=== PATIENT | male | born 1950 | race Caucasian/White ===

== ENCOUNTER → 2016-08-16 | Outpatient (CLI) | payer MEDICARE, MEDICAID ==
[~2016-08-16] MED LIST: ALDACTONE; FUROSEMIDE; INVANZ INJ1 G/VIAL IJ; LOPERAMIDE2 MG PO; NO HOME MEDICATIONS; ZOCOR 40MG40 MG PO
[2016-08-16 17:44] LABS: CALCIUM 9.5 mg/dL (8.4-10.2); CREATININE, serum 2.01 mg/dL (0.66-1.25); MAGNESIUM 1.7 mg/dL (1.6-2.3); PHOSPHOROUS 4.1 mg/dL (2.5-4.5); POTASSIUM 4.1 mmol/L (3.4-5.0)
== END ==
LOC: COL.RAD 16:57
PROVIDERS: Internal Medicine
DX: N17.8 Other acute kidney failure (principal); N18.2 Chronic kidney disease, stage 2 (mild); E11.9 Type 2 diabetes mellitus without complications

== ENCOUNTER → 2016-08-23 | Outpatient (REF) ==
[2016-08-23 06:43] LABS: BASO # 0.1 (0.0-0.2); BASO % 0.7 % (0.0-2.0); EOS # 0.4 (0.0-0.7); EOS % 5.1 % (0-4.0); GRAN # 5.3 (1.4-6.5); LYMPH # 1.7 (1.2-3.4); MEAN CELL VOLUME 89 fl (80.0-100.0); MEAN CORPUSCULAR HGB CONC 32 g/dl (33.0-37.0); MEAN PLATELET VOLUME 11.1 fl (7.4-10.4); MONO # 1.1 (0.1-0.6); MONO % 12.7 % (1.7-9.3); PLATELET COUNT 231 K/mm3 (130-400); RED BLOOD COUNT 3.33 M/mm3 (4.20-5.60); WHITE BLOOD COUNT 8.7 K/mm3 (4.8-10.8)
[2016-08-23 06:44] LABS: HEMATOCRIT 29.5 % (42.0-52.0); HEMOGLOBIN 9.5 g/dl (13.5-18.0); MEAN CORPUSCULAR HEMOGLOBIN 29 pg (27.0-31.0)
[2016-08-23 07:39] LABS: ADJUSTED CALCIUM 9.6 mg/dL (8.4-10.2); ALBUMIN 3.5 gm/dL (3.5-5.0); BILIRUBIN,TOTAL 1.2 mg/dL (0.0-1.0); CALCIUM 9.2 mg/dL (8.4-10.2); CREATININE, serum 1.83 mg/dL (0.66-1.25); POTASSIUM 3.1 mmol/L (3.4-5.0)
[2016-08-23 08:10] LABS: THYROID STIMULATING HORMONE 0.927 uIU/mL (0.465-4.680)
== END ==
LOC: ZCOL.LAB 06:37
PROVIDERS: Internal Medicine
DX: Z01.89 Encounter for other specified special examinations (principal)

== ENCOUNTER → 2016-09-26 | Outpatient (CLI) | payer MEDICARE, MEDICAID ==
[2016-09-26 19:14] LABS: PH 6 (5-8); SQUAMOUS EPITHELIAL 0-2 /hpf; URINE APPEARANCE Clear; URINE BACTERIA Rare /hpf; URINE BILIRUBIN Negative (NEGATIVE); URINE BLOOD Negative (NEGATIVE); URINE COLOR Yellow; URINE GLUCOSE Negative (NEGATIVE); URINE KETONE Negative (NEGATIVE); URINE RBC 0-2 /hpf; URINE UROBILINOGEN Negative (NEGATIVE); URINE WBC 0-2 /hpf
== END ==
LOC: ZCOL.LAB 17:32
PROVIDERS: Internal Medicine
DX: N39.8 Other specified disorders of urinary system (principal)

== ENCOUNTER → 2016-09-30 | Outpatient (CLI) | payer MEDICARE, MEDICAID ==
[2016-09-30 10:57] LABS: CALCIUM 9.9 mg/dL (8.4-10.2); CREATININE, serum 2.13 mg/dL (0.66-1.25)
[2016-09-30 11:03] LABS: POTASSIUM 2.8 mmol/L (3.4-5.0)
== END ==
LOC: ZCOL.LAB 10:12 → COL.LAB 10:12
PROVIDERS: Internal Medicine
DX: M62.81 Muscle weakness (generalized) (principal)

== ENCOUNTER → 2016-10-02 | Outpatient (CLI) | payer MEDICARE, MEDICAID ==
[2016-10-02 14:04] LABS: CALCIUM 9.2 mg/dL (8.4-10.2); CREATININE, serum 1.71 mg/dL (0.66-1.25)
== END ==
LOC: ZCOL.LAB 13:42
PROVIDERS: Internal Medicine
DX: E87.6 Hypokalemia (principal)

== ENCOUNTER → 2016-11-01 | Outpatient (REF) ==
[2016-11-01 17:34] LABS: CALCIUM 9.7 mg/dL (8.4-10.2); CREATININE, serum 1.51 mg/dL (0.66-1.25); POTASSIUM 3.1 mmol/L (3.4-5.0)
== END ==
LOC: ZCOL.LAB 16:32
PROVIDERS: Internal Medicine
DX: Z01.89 Encounter for other specified special examinations (principal)

== ENCOUNTER → 2016-11-03 | Outpatient (CLI) | payer MEDICARE, MEDICAID | LOC: ZCOL.LAB 00:56 | PROVIDERS: Internal Medicine | DX: F20.89 Other schizophrenia (principal); E11.9 Type 2 diabetes mellitus without complications ==

== ENCOUNTER → 2016-11-22 | Outpatient (CLI) | payer MEDICARE, MEDICAID ==
[2016-11-22 15:30] LABS: CALCIUM 9.3 mg/dL (8.4-10.2); CREATININE, serum 1.43 mg/dL (0.66-1.25); POTASSIUM 4.1 mmol/L (3.4-5.0)
== END ==
LOC: ZCOL.LAB 14:43
PROVIDERS: Internal Medicine
DX: E11.9 Type 2 diabetes mellitus without complications (principal); Z02.89 Encounter for other administrative examinations

== ENCOUNTER → 2016-12-01 | Outpatient (CLI) | payer MEDICARE, MEDICAID ==
[2016-12-01 08:43] LABS: CALCIUM 9.3 mg/dL (8.4-10.2); CREATININE, serum 1.25 mg/dL (0.66-1.25); MAGNESIUM 1.8 mg/dL (1.6-2.3); POTASSIUM 3.4 mmol/L (3.4-5.0)
== END ==
LOC: ZCOL.LAB 06:05
PROVIDERS: Internal Medicine
DX: Z02.89 Encounter for other administrative examinations (principal)

== ENCOUNTER → 2016-12-18 | Outpatient (CLI) | payer MEDICARE, MEDICAID ==
[2016-12-18 18:20] LABS: ADJUSTED CALCIUM 9.9 mg/dL (8.4-10.2); ALBUMIN 3.8 gm/dL (3.5-5.0); CALCIUM 9.7 mg/dL (8.4-10.2); CREATININE, serum 1.23 mg/dL (0.66-1.25); POTASSIUM 3.3 mmol/L (3.4-5.0); TOTAL PROTEIN 7.4 gm/dL (6.4-8.2)
[2016-12-18 18:40] LABS: PHOSPHOROUS 3.7 mg/dL (2.5-4.5)
[2016-12-18 18:47] LABS: BASO # 0.1 (0.0-0.2); EOS # 0.2 (0.0-0.7); EOS % 3.5 % (0-4.0); GRAN # 3.9 (1.4-6.5); GRAN % 56.1 % (42.2-75.2); HEMOGLOBIN 12.3 g/dl (13.5-18.0); LYMPH % 29.4 % (20.0-51.0); MEAN CELL VOLUME 87 fl (80.0-100.0); MEAN CORPUSCULAR HEMOGLOBIN 28 pg (27.0-31.0); MEAN CORPUSCULAR HGB CONC 32 g/dl (33.0-37.0); MEAN PLATELET VOLUME 11.7 fl (7.4-10.4); MONO # 0.7 (0.1-0.6); MONO % 9.6 % (1.7-9.3); PLATELET COUNT 268 K/mm3 (130-400); RED BLOOD COUNT 4.47 M/mm3 (4.20-5.60); REDCELL DISTRIBUTION WIDTH-CV 16.9 % (11.5-14.5); WHITE BLOOD COUNT 6.9 K/mm3 (4.8-10.8)
== END ==
LOC: ZCOL.LAB 16:05
PROVIDERS: Internal Medicine
DX: Z86.718 Personal history of other venous thrombosis and embolism (principal); Z02.89 Encounter for other administrative examinations

== ENCOUNTER → 2016-12-20 | Outpatient (CLI) | payer MEDICARE, MEDICAID ==
[2016-12-20 22:38] LABS: PH 5 (5-8); SQUAMOUS EPITHELIAL 0-2 /hpf; URINE APPEARANCE Clear; URINE BACTERIA Rare /hpf; URINE BILIRUBIN Negative (NEGATIVE); URINE BLOOD Negative (NEGATIVE); URINE COLOR Yellow; URINE GLUCOSE Negative (NEGATIVE); URINE KETONE Negative (NEGATIVE); URINE RBC 0-2 /hpf; URINE UROBILINOGEN Negative (NEGATIVE)
[2016-12-21 15:36] LABS: CREATININE OTHER SOURCE 147 mg/dL (())
== END ==
LOC: ZCOL.LAB 21:42
PROVIDERS: Internal Medicine
DX: Z02.89 Encounter for other administrative examinations (principal)

== ENCOUNTER → 2017-01-20 | Outpatient (CLI) | payer MEDICARE, MEDICAID ==
[2017-01-20 20:27] LABS: ALBUMIN 3.6 gm/dL (3.5-5.0); BILIRUBIN,DIRECT 0.7 mg/dL (0.0-0.4); BILIRUBIN,TOTAL 0.9 mg/dL (0.0-1.0); TOTAL PROTEIN 6.9 gm/dL (6.4-8.2)
== END ==
LOC: ZCOL.LAB 19:07
PROVIDERS: Internal Medicine
DX: Z13.0 Encounter for screening for diseases of the blood and blood-forming organs and certain disorders involving the immune mechanism (principal)

== ENCOUNTER → 2017-02-19 | Outpatient (CLI) | payer MEDICARE, MEDICAID ==
[2017-02-19 08:59] LABS: BASO # 0.1 (0.0-0.2); BASO % 0.8 % (0.0-2.0); EOS # 0.3 (0.0-0.7); EOS % 4.3 % (0-4.0); GRAN # 3.2 (1.4-6.5); HEMATOCRIT 35.3 % (42.0-52.0); HEMOGLOBIN 11.2 g/dl (13.5-18.0); MEAN CELL VOLUME 88 fl (80.0-100.0); MEAN CORPUSCULAR HEMOGLOBIN 28 pg (27.0-31.0); MEAN CORPUSCULAR HGB CONC 32 g/dl (33.0-37.0); MEAN PLATELET VOLUME 11.5 fl (7.4-10.4); MONO # 0.8 (0.1-0.6); MONO % 12.6 % (1.7-9.3); PLATELET COUNT 261 K/mm3 (130-400); RED BLOOD COUNT 4.03 M/mm3 (4.20-5.60); REDCELL DISTRIBUTION WIDTH-CV 14.8 % (11.5-14.5); WHITE BLOOD COUNT 6.3 K/mm3 (4.8-10.8)
[2017-02-19 09:06] LABS: ADJUSTED CALCIUM 9.6 mg/dL (8.4-10.2); ALBUMIN 3.5 gm/dL (3.5-5.0); CALCIUM 9.2 mg/dL (8.4-10.2); CREATININE, serum 1.41 mg/dL (0.66-1.25); POTASSIUM 3.3 mmol/L (3.4-5.0); TOTAL PROTEIN 6.9 gm/dL (6.4-8.2)
[2017-02-19 09:16] LABS: BILIRUBIN,DIRECT 0.6 mg/dL (0.0-0.4); BILIRUBIN,TOTAL 0.6 mg/dL (0.0-1.0)
[2017-02-19 09:37] LABS: PSA-TOTAL 0.1 ng/mL (0-4); THYROID STIMULATING HORMONE 1.35 uIU/mL (0.465-4.680)
== END ==
LOC: ZCOL.LAB 06:43
PROVIDERS: Internal Medicine
DX: N40.0 Benign prostatic hyperplasia without lower urinary tract symptoms (principal); F20.89 Other schizophrenia; E11.9 Type 2 diabetes mellitus without complications
CPT/HCPCS: G0103

== ENCOUNTER → 2017-02-21 | Outpatient (CLI) | payer MEDICARE, MEDICAID ==
[2017-02-21 07:29] LABS: ADJUSTED CALCIUM 9.6 mg/dL (8.4-10.2); ALBUMIN 3.5 gm/dL (3.5-5.0); BILIRUBIN,TOTAL 0.7 mg/dL (0.0-1.0); CALCIUM 9.2 mg/dL (8.4-10.2); CREATININE, serum 1.25 mg/dL (0.66-1.25); POTASSIUM 3.7 mmol/L (3.4-5.0); TOTAL PROTEIN 6.9 gm/dL (6.4-8.2)
[2017-02-21 07:59] LABS: THYROID STIMULATING HORMONE 1.07 uIU/mL (0.465-4.680)
== END ==
LOC: ZCOL.LAB 06:19
PROVIDERS: Internal Medicine
DX: E11.9 Type 2 diabetes mellitus without complications (principal); E78.5 Hyperlipidemia, unspecified

== ENCOUNTER → 2017-05-14 | Outpatient (CLI) | payer MEDICARE, MEDICAID ==
[2017-05-14 11:59] LABS: ALBUMIN 3.7 gm/dL (3.5-5.0); CALCIUM 9.3 mg/dL (8.4-10.2); CREATININE, serum 1.4 mg/dL (0.66-1.25); PHOSPHOROUS 4.1 mg/dL (2.5-4.5)
[2017-05-14 12:11] LABS: BASO # 0.1 (0.0-0.2); BASO % 0.9 % (0.0-2.0); EOS # 0.2 (0.0-0.7); EOS % 3.2 % (0-4.0); GRAN % 57.1 % (42.2-75.2); HEMOGLOBIN 12.1 g/dl (13.5-18.0); LYMPH # 1.9 (1.2-3.4); LYMPH % 26.9 % (20.0-51.0); MEAN CELL VOLUME 89 fl (80.0-100.0); MEAN CORPUSCULAR HEMOGLOBIN 29 pg (27.0-31.0); MEAN CORPUSCULAR HGB CONC 33 g/dl (33.0-37.0); MEAN PLATELET VOLUME 11.6 fl (7.4-10.4); MONO # 0.8 (0.1-0.6); MONO % 11.5 % (1.7-9.3); PLATELET COUNT 229 K/mm3 (130-400); RED BLOOD COUNT 4.17 M/mm3 (4.20-5.60); REDCELL DISTRIBUTION WIDTH-CV 14.6 % (11.5-14.5); WHITE BLOOD COUNT 6.9 K/mm3 (4.8-10.8)
[2017-05-14 12:19] LABS: HEMATOCRIT 36.9 % (42.0-52.0)
[2017-05-14 15:10] LABS: PH 5 (5-8); SQUAMOUS EPITHELIAL 0-2 /hpf; URINE APPEARANCE Clear; URINE BACTERIA None Seen /hpf; URINE BILIRUBIN Negative (NEGATIVE); URINE BLOOD Negative (NEGATIVE); URINE COLOR Yellow; URINE GLUCOSE Negative (NEGATIVE); URINE KETONE Negative (NEGATIVE); URINE RBC 0-2 /hpf; URINE UROBILINOGEN Negative (NEGATIVE); URINE WBC 0-2 /hpf
== END ==
LOC: ZCOL.LAB 11:17
PROVIDERS: Internal Medicine
DX: E78.5 Hyperlipidemia, unspecified (principal)

== ENCOUNTER → 2017-05-23 | Outpatient (REF) ==
[2017-05-23 12:20] LABS: CREATININE, serum 1.3 mg/dL (0.66-1.25); POTASSIUM 4.5 mmol/L (3.4-5.0)
== END ==
LOC: ZCOL.LAB 11:53
PROVIDERS: Internal Medicine
DX: E11.9 Type 2 diabetes mellitus without complications (principal); E78.5 Hyperlipidemia, unspecified

== ENCOUNTER → 2017-06-12 | Outpatient (CLI) | payer MEDICARE, MEDICAID ==
[2017-06-12 11:41] LABS: CALCIUM 9.2 mg/dL (8.4-10.2); CREATININE, serum 1.42 mg/dL (0.66-1.25); POTASSIUM 4.6 mmol/L (3.4-5.0)
== END ==
LOC: ZCOL.LAB 11:01
PROVIDERS: Internal Medicine
DX: E11.9 Type 2 diabetes mellitus without complications (principal); K76.89 Other specified diseases of liver

== ENCOUNTER → 2017-08-09 | Outpatient (CLI) | payer MEDICARE, MEDICAID ==
[2017-08-09 19:40] LABS: COLLECTION METHOD CLEAN CATCH
[2017-08-09 19:48] LABS: PH 5 (5-8); SQUAMOUS EPITHELIAL None Seen /hpf; URINE APPEARANCE Clear; URINE BACTERIA None Seen /hpf; URINE BILIRUBIN Negative (NEGATIVE); URINE BLOOD Negative (NEGATIVE); URINE COLOR Yellow; URINE GLUCOSE Negative (NEGATIVE); URINE KETONE Negative (NEGATIVE); URINE LEUKOCYTE ESTERASE Negative (NEGATIVE); URINE PROTEIN(semi-quant) Negative (NEGATIVE); URINE RBC 0-2 /hpf; URINE WBC 0-2 /hpf
[2017-08-10 14:24] LABS: CREATININE OTHER SOURCE 143 mg/dL (()); URINE MICROALBUMIN <0.5 mg/dL (0.0-1.7)
== END ==
LOC: ZCOL.LAB 19:07
PROVIDERS: Internal Medicine
DX: N18.3 Chronic kidney disease, stage 3 (moderate) (principal)

== ENCOUNTER → 2017-08-09 | Outpatient (CLI) | payer MEDICARE, MEDICAID | LOC: ZCOL.LAB 14:10 | DX: Z01.89 Encounter for other specified special examinations (principal) ==

== ENCOUNTER → 2017-08-15 | Outpatient (CLI) | payer MEDICARE, MEDICAID ==
[2017-08-15 11:56] LABS: BASO # 0.1 (0.0-0.2); BASO % 0.8 % (0.0-2.0); EOS # 0.2 (0.0-0.7); EOS % 2.6 % (0-4.0); GRAN # 3.7 (1.4-6.5); GRAN % 56.8 % (42.2-75.2); HEMATOCRIT 39.3 % (42.0-52.0); HEMOGLOBIN 12.8 g/dl (13.5-18.0); LYMPH # 1.7 (1.2-3.4); LYMPH % 27.1 % (20.0-51.0); MEAN CELL VOLUME 90 fl (80.0-100.0); MEAN CORPUSCULAR HEMOGLOBIN 29 pg (27.0-31.0); MEAN CORPUSCULAR HGB CONC 33 g/dl (33.0-37.0); MEAN PLATELET VOLUME 11.2 fl (7.4-10.4); MONO # 0.8 (0.1-0.6); MONO % 12.4 % (1.7-9.3); PLATELET COUNT 219 K/mm3 (130-400); RED BLOOD COUNT 4.36 M/mm3 (4.20-5.60)
[2017-08-15 12:14] LABS: CALCIUM 9.4 mg/dL (8.4-10.2); CREATININE, serum 1.67 mg/dL (0.66-1.25); POTASSIUM 3.7 mmol/L (3.4-5.0)
== END ==
LOC: ZCOL.LAB 11:51
PROVIDERS: Internal Medicine
DX: N18.3 Chronic kidney disease, stage 3 (moderate) (principal); E87.6 Hypokalemia

== ENCOUNTER → 2017-08-22 | Outpatient (CLI) | payer MEDICARE, MEDICAID ==
[2017-08-22 11:24] LABS: ALBUMIN 3.8 gm/dL (3.5-5.0); BILIRUBIN,TOTAL 0.8 mg/dL (0.0-1.0); CALCIUM 9.5 mg/dL (8.4-10.2); CREATININE, serum 1.46 mg/dL (0.66-1.25); POTASSIUM 4.2 mmol/L (3.4-5.0); TOTAL PROTEIN 7.1 gm/dL (6.4-8.2)
[2017-08-22 11:54] LABS: THYROID STIMULATING HORMONE 1.73 uIU/mL (0.465-4.680)
== END ==
LOC: ZCOL.LAB 11:00
PROVIDERS: Internal Medicine
DX: E78.5 Hyperlipidemia, unspecified (principal); E03.9 Hypothyroidism, unspecified; E87.6 Hypokalemia

== ENCOUNTER → 2017-12-25 | Outpatient (CLI) | payer MEDICARE, MEDICAID | LOC: ZCOL.LAB 07:00 | DX: E11.9 Type 2 diabetes mellitus without complications (principal) ==

== ENCOUNTER → 2018-01-23 | Outpatient (REF) ==
[2018-01-23 10:39] LABS: BASO # 0.1 (0.0-0.2); BASO % 0.9 % (0.0-2.0); EOS # 0.2 (0.0-0.7); EOS % 3.7 % (0-4.0); GRAN # 3.3 (1.4-6.5); GRAN % 58.3 % (42.2-75.2); HEMATOCRIT 38.8 % (42.0-52.0); HEMOGLOBIN 12.6 g/dl (13.5-18.0); LYMPH # 1.3 (1.2-3.4); LYMPH % 23.4 % (20.0-51.0); MEAN CELL VOLUME 91 fl (80.0-100.0); MEAN CORPUSCULAR HEMOGLOBIN 30 pg (27.0-31.0); MEAN CORPUSCULAR HGB CONC 33 g/dl (33.0-37.0); MEAN PLATELET VOLUME 11.3 fl (7.4-10.4); MONO # 0.8 (0.1-0.6); MONO % 13.3 % (1.7-9.3); PLATELET COUNT 189 K/mm3 (130-400); RED BLOOD COUNT 4.26 M/mm3 (4.20-5.60); REDCELL DISTRIBUTION WIDTH-CV 13.8 % (11.5-14.5)
[2018-01-23 10:50] LABS: ALBUMIN 3.4 gm/dL (3.5-5.0); BILIRUBIN,TOTAL 0.9 mg/dL (0.0-1.0); CALCIUM 9.1 mg/dL (8.4-10.2); CREATININE, serum 1.33 mg/dL (0.66-1.25); POTASSIUM 3.2 mmol/L (3.4-5.0); TOTAL PROTEIN 7.2 gm/dL (6.4-8.2)
[2018-01-24 02:38] LABS: CREATININE OTHER SOURCE 13 mg/dL (())
[2018-01-24 02:54] LABS: URINE MICROALBUMIN <0.5 mg/dL (0.0-1.7)
== END ==
LOC: ZCOL.LAB 10:30
PROVIDERS: Internal Medicine
DX: I87.2 Venous insufficiency (chronic) (peripheral) (principal); E11.22 Type 2 diabetes mellitus with diabetic chronic kidney disease; N18.3 Chronic kidney disease, stage 3 (moderate)

== ENCOUNTER → 2018-02-18 | Outpatient (REF) ==
[2018-02-18 11:04] LABS: BASO % 0.7 % (0.0-2.0); EOS # 0.2 (0.0-0.7); GRAN # 3.1 (1.4-6.5); HEMATOCRIT 39.2 % (42.0-52.0); HEMOGLOBIN 12.9 g/dl (13.5-18.0); LYMPH # 1.5 (1.2-3.4); MEAN CELL VOLUME 91 fl (80.0-100.0); MEAN CORPUSCULAR HEMOGLOBIN 30 pg (27.0-31.0); MEAN CORPUSCULAR HGB CONC 33 g/dl (33.0-37.0); MEAN PLATELET VOLUME 11.3 fl (7.4-10.4); MONO # 0.7 (0.1-0.6); MONO % 12.1 % (1.7-9.3); PLATELET COUNT 180 K/mm3 (130-400); RED BLOOD COUNT 4.31 M/mm3 (4.20-5.60); REDCELL DISTRIBUTION WIDTH-CV 14.1 % (11.5-14.5)
[2018-02-18 11:18] LABS: ALANINE AMINOTRANSFERASE 59 U/L (21-72); ALBUMIN 3.5 gm/dL (3.5-5.0); ALKALINE PHOSPHATASE 72 U/L (50-136); ANION GAP 10 mmol/L (7-16); AST,SGOT 89 U/L (15-37); BILIRUBIN,TOTAL 0.8 mg/dL (0.0-1.0); BLOOD UREA NITROGEN 26 mg/dL (9-20); CALCIUM 9.2 mg/dL (8.4-10.2); CARBON DIOXIDE 29 mmol/L (22-30); CHLORIDE 97 mmol/L (98-107); CHOLESTEROL 168 mg/dL (120-200); CHOLESTEROL RISK RATIO 3.5; CREATININE, serum 1.51 mg/dL (0.66-1.25); GLUCOSE 174 mg/dL (74-106); HDL CHOLESTEROL 47 mg/dL; LDL CHOLESTEROL 100 mg/dL; MAGNESIUM 1.8 mg/dL (1.6-2.3); POTASSIUM 3.9 mmol/L (3.4-5.0); SODIUM 136 mmol/L (137-145); TOTAL PROTEIN 6.9 gm/dL (6.4-8.2); TRIGLYCERIDE 104 mg/dL
[2018-02-18 11:49] LABS: PSA-TOTAL < 0.10 ng/mL (0-4)
== END ==
LOC: ZCOL.LAB 11:00
PROVIDERS: Internal Medicine
DX: E11.9 Type 2 diabetes mellitus without complications (principal); E78.5 Hyperlipidemia, unspecified; R60.1 Generalized edema; N40.0 Benign prostatic hyperplasia without lower urinary tract symptoms; Z86.718 Personal history of other venous thrombosis and embolism
CPT/HCPCS: G0103

== ENCOUNTER → 2018-05-20 | Outpatient (CLI) | payer MEDICARE, MEDICAID ==
[2018-05-20 16:43] LABS: CALCIUM 9.6 mg/dL (8.4-10.2); CREATININE, serum 1.41 mg/dL (0.66-1.25); POTASSIUM 3.6 mmol/L (3.4-5.0)
[2018-05-20 16:48] LABS: HEMATOCRIT 40.6 % (42.0-52.0); HEMOGLOBIN 13.3 g/dl (13.5-18.0); MEAN CELL VOLUME 92 fl (80.0-100.0); MEAN CORPUSCULAR HEMOGLOBIN 30 pg (27.0-31.0); MEAN CORPUSCULAR HGB CONC 33 g/dl (33.0-37.0); MEAN PLATELET VOLUME 11.7 fl (7.4-10.4); PLATELET COUNT 171 K/mm3 (130-400); REDCELL DISTRIBUTION WIDTH-CV 14.6 % (11.5-14.5)
[2018-05-20 23:04] LABS: CREATININE OTHER SOURCE 22 mg/dL (()); URINE MICROALBUMIN <0.5 mg/dL (0.0-1.7)
== END ==
LOC: ZCOL.LAB 16:21
PROVIDERS: Internal Medicine
DX: N18.3 Chronic kidney disease, stage 3 (moderate) (principal); E87.6 Hypokalemia

== ENCOUNTER → 2018-05-31 | Outpatient (REF) ==
[2018-05-31 09:49] LABS: BASO % 0.5 % (0.0-2.0); EOS # 0.2 (0.0-0.7); EOS % 3.2 % (0-4.0); GRAN # 3.5 (1.4-6.5); GRAN % 58.8 % (42.2-75.2); HEMATOCRIT 37.9 % (42.0-52.0); HEMOGLOBIN 12.2 g/dl (13.5-18.0); LYMPH # 1.3 (1.2-3.4); LYMPH % 22.3 % (20.0-51.0); MEAN CELL VOLUME 94 fl (80.0-100.0); MEAN CORPUSCULAR HEMOGLOBIN 30 pg (27.0-31.0); MEAN CORPUSCULAR HGB CONC 32 g/dl (33.0-37.0); MONO # 0.9 (0.1-0.6); MONO % 14.9 % (1.7-9.3); PLATELET COUNT 159 K/mm3 (130-400); RED BLOOD COUNT 4.03 M/mm3 (4.20-5.60); REDCELL DISTRIBUTION WIDTH-CV 14.5 % (11.5-14.5)
[2018-05-31 10:13] LABS: ALBUMIN 3.3 gm/dL (3.5-5.0); BILIRUBIN,TOTAL 1.1 mg/dL (0.0-1.0); CALCIUM 9.2 mg/dL (8.4-10.2); CHOLESTEROL RISK RATIO 3.8; CREATININE, serum 1.4 mg/dL (0.66-1.25); POTASSIUM 4.2 mmol/L (3.4-5.0); TOTAL PROTEIN 6.7 gm/dL (6.4-8.2)
== END ==
LOC: ZCOL.LAB 09:43 → ZLAB.WCH 09:43
PROVIDERS: Internal Medicine
DX: E11.9 Type 2 diabetes mellitus without complications (principal); E87.6 Hypokalemia; E78.5 Hyperlipidemia, unspecified; F20.89 Other schizophrenia

== ENCOUNTER → 2018-06-20 | Outpatient (CLI) | payer MEDICARE, MEDICAID ==
[2018-06-20 14:17] LABS: CALCIUM 9.1 mg/dL (8.4-10.2); CREATININE, serum 1.37 mg/dL (0.66-1.25); POTASSIUM 4.2 mmol/L (3.4-5.0)
== END ==
LOC: ZCOL.LAB 12:43
PROVIDERS: Internal Medicine
DX: E11.9 Type 2 diabetes mellitus without complications (principal)

== ENCOUNTER → 2018-08-22 | Outpatient (CLI) | payer MEDICARE, MEDICAID ==
[2018-08-22 13:09] LABS: CHOLESTEROL RISK RATIO 4.1
[2018-08-22 13:36] LABS: THYROID STIMULATING HORMONE 0.85 uIU/mL (0.465-4.680)
== END ==
LOC: ZCOL.LAB 11:57
PROVIDERS: Internal Medicine
DX: E78.5 Hyperlipidemia, unspecified (principal); K59.00 Constipation, unspecified

== ENCOUNTER → 2018-08-27 | Outpatient (CLI) | payer MEDICARE, MEDICAID | LOC: ZCOL.LAB 11:39 | DX: E11.9 Type 2 diabetes mellitus without complications (principal); R80.9 Proteinuria, unspecified ==

== ENCOUNTER → 2018-08-27 | Outpatient (CLI) | payer MEDICARE, MEDICAID ==
[2018-08-27 06:50] LABS: HEMATOCRIT 38.2 % (42.0-52.0); HEMOGLOBIN 12.7 g/dl (13.5-18.0); MEAN CELL VOLUME 95 fl (80.0-100.0); MEAN CORPUSCULAR HEMOGLOBIN 31 pg (27.0-31.0); MEAN CORPUSCULAR HGB CONC 33 g/dl (33.0-37.0); PLATELET COUNT 155 K/mm3 (130-400); RED BLOOD COUNT 4.04 M/mm3 (4.20-5.60); REDCELL DISTRIBUTION WIDTH-CV 13.9 % (11.5-14.5)
[2018-08-27 07:22] LABS: ALBUMIN 3.6 gm/dL (3.5-5.0); BILIRUBIN,TOTAL 1.1 mg/dL (0.0-1.0); CALCIUM 9.3 mg/dL (8.4-10.2); CREATININE, serum 1.9 mg/dL (0.66-1.25); MAGNESIUM 2.1 mg/dL (1.6-2.3); POTASSIUM 3.7 mmol/L (3.4-5.0); TOTAL PROTEIN 7.3 gm/dL (6.4-8.2)
[2018-08-28 02:37] LABS: URINE MICROALBUMIN 0.6 mg/dL (0.0-1.7)
== END ==
LOC: ZCOL.LAB 06:15
PROVIDERS: Internal Medicine
DX: I87.2 Venous insufficiency (chronic) (peripheral) (principal); E78.5 Hyperlipidemia, unspecified; E87.6 Hypokalemia; E11.9 Type 2 diabetes mellitus without complications

== ENCOUNTER → 2018-09-04 | Outpatient (REF) ==
[2018-09-04 12:03] LABS: CALCIUM 9.9 mg/dL (8.4-10.2); CREATININE, serum 2.19 mg/dL (0.66-1.25); MAGNESIUM 2.1 mg/dL (1.6-2.3); POTASSIUM 3.9 mmol/L (3.4-5.0)
== END ==
LOC: ZCOL.LAB 11:23
PROVIDERS: Internal Medicine
DX: E11.9 Type 2 diabetes mellitus without complications (principal); E87.6 Hypokalemia

== ENCOUNTER 2018-09-08 01:14 | Observation (INO) | payer MEDICARE, MEDICAID ==
[~2018-09-08] VITALS: Ht 167.6 cm; Wt 165.1 kg
[2018-09-08] VITALS (659 sets, daily range): BP systolic 101–136; BP diastolic 39–63; PULSE 85–99; TEMP 97.4–98.9; O2SAT 88–100
[2018-09-08] MEDS ORDERED: COLACE 100100 MG/CAP PO (01:41)
[2018-09-08] MEDS ORDERED: LIQUIFILM TEARS15 ML OU (01:41)
[2018-09-08] MEDS ORDERED: INVEGA SUSTENNA IM (01:42)
[2018-09-08] MEDS ORDERED: AMARYL 2MG T2 MG/TAB PO (01:42)
[2018-09-08] MEDS ORDERED: TYLENOL 325MG325 MG PO (01:42)
[2018-09-08] MEDS ORDERED: MIDAMOR 5MG TAB5 MG PO (01:43)
[2018-09-08] MEDS ORDERED: K-DUR20 MEQ PO (01:43)
[2018-09-08] MEDS ORDERED: DEMADEX 20MG20 M1 PO (01:47)
[2018-09-08] MEDS ORDERED: ZAROXOLYN5 MG PO (01:48)
[2018-09-08] MEDS ORDERED: LEVEMIR FLEX100 U/ML SQ (01:51)
[2018-09-08] MEDS ORDERED: NOVOLOG FLEX100 U/ML SQ (01:51)
[2018-09-08] MEDS ORDERED: TRULICITY0.75 MG/0. SQ (01:52)
[2018-09-08 01:53] LABS: BASO % 0.1 % (0.0-2.0); GRAN # 8.4 (1.4-6.5); GRAN % 72.3 % (42.2-75.2); HEMATOCRIT 42.5 % (42.0-52.0); HEMOGLOBIN 14.7 g/dl (13.5-18.0); LYMPH # 1.7 (1.2-3.4); LYMPH % 14.5 % (20.0-51.0); MEAN CELL VOLUME 91 fl (80.0-100.0); MEAN CORPUSCULAR HEMOGLOBIN 32 pg (27.0-31.0); MEAN CORPUSCULAR HGB CONC 35 g/dl (33.0-37.0); MEAN PLATELET VOLUME 11.2 fl (7.4-10.4); MONO # 1.4 (0.1-0.6); MONO % 12.4 % (1.7-9.3); PLATELET COUNT 153 K/mm3 (130-400); RED BLOOD COUNT 4.66 M/mm3 (4.20-5.60); REDCELL DISTRIBUTION WIDTH-CV 13.4 % (11.5-14.5)
[2018-09-08 02:03] LABS: ALANINE AMINOTRANSFERASE 35 U/L (21-72); ALBUMIN 4.1 gm/dL (3.5-5.0); ALKALINE PHOSPHATASE 80 U/L (50-136); ANION GAP 16 mmol/L (7-16); AST,SGOT 59 U/L (15-37); BILIRUBIN,TOTAL 1.5 mg/dL (0.0-1.0); BLOOD UREA NITROGEN 108 mg/dL (9-20); CALCIUM 9.7 mg/dL (8.4-10.2); CARBON DIOXIDE 30 mmol/L (22-30); CHLORIDE 90 mmol/L (98-107); CREATININE, serum 2.52 mg/dL (0.66-1.25); GLUCOSE 196 mg/dL (74-106); LIPASE 227 U/L (23-300); POTASSIUM 3.2 mmol/L (3.4-5.0); SODIUM 136 mmol/L (137-145); TOTAL PROTEIN 8.4 gm/dL (6.4-8.2)
[2018-09-08 02:15] LABS: TROPONIN-I < 0.012 ng/mL (0.000-0.035)
[2018-09-08 03:07] LABS: COLLECTION METHOD CLEAN CATCH
[2018-09-08 03:14] LABS: PH 7 (5-8); SQUAMOUS EPITHELIAL 0-2 /hpf; URINE APPEARANCE Clear; URINE BACTERIA None Seen /hpf; URINE BILIRUBIN Negative (NEGATIVE); URINE BLOOD Negative (NEGATIVE); URINE COLOR Straw; URINE GLUCOSE Negative (NEGATIVE); URINE KETONE Negative (NEGATIVE); URINE LEUKOCYTE ESTERASE Negative (NEGATIVE); URINE NITRATE Negative (NEGATIVE); URINE PROTEIN(semi-quant) Negative (NEGATIVE); URINE RBC 0-2 /hpf; URINE UROBILINOGEN Negative (NEGATIVE)
--- NOTE | 2018-09-08 04:05 | NUR ---
REPORT RECEIVED FROM HERMAN MARQUIS VIA [employer].
--- NOTE | 2018-09-08 04:25 | NUR ---
PT ARRIVED AT UNIT VIA STRETCHER, ABLE TO TARNSFER TO BED FULL WEIGHT BEARING WITH SBA, WEAKNESS NOTED. ALERT AND ORIENTED X3, CONFUSED WITH DATE. CPT ORIENTED TO ROOM AND HOSPITAL POLICY REGARDING VISITATION AND ORDERING MEAL, VERBALIZED UNDERSTANDING.
--- NOTE | 2018-09-08 07:20 | NUR ---
REPORT GIVEN AT BEDSIDE TO HERMAN SMYTH.
--- NOTE | 2018-09-08 07:20 | NUR ---
Report received from Luly SUTTON and care resumed.
[2018-09-08] MEDS ORDERED: LANTUS SOLOS100 U/ML SQ ×2 (07:46→07:49)
[2018-09-08] MEDS ORDERED: LANTUS100 U/ML SQ (07:52)
[2018-09-08] MEDS ORDERED: VISTARIL 2525 MG/CAP PO (07:56)
[2018-09-08] MEDS ORDERED: BANOPHEN25 M1 PO (07:58)
--- NOTE | 2018-09-08 08:50 | NUR ---
Assessment complete. See charting. Pt denies any pain or concerns at this time. IV fluids infusing. Waiting on updated med list to [facility] so home meq req can be completed. Will continue to follow.
--- NOTE | 2018-09-08 09:30 | NUR ---
Lindsay order received from Dr Lugo due to need for accurate I/O and pt is currently incontinent. Pt tolerated well without any difficulty. Light yellow return noted. Will continue to follow.
--- NOTE | 2018-09-08 13:10 | NUR ---
Dr Aguilar in to see pt at this time.
--- NOTE | 2018-09-08 15:00 | NUR ---
Dr Lugo called for order clarification. Will follow up with Dr Aguilar regarding IV fluids.
--- NOTE | 2018-09-08 15:35 | NUR ---
Dr Aguilar called for order clarification. New orders for IV fluids placed.
--- NOTE | 2018-09-08 16:00 | NUR ---
Report called to Chloe RN on medical floor. Pt moved to bed per slide board and taken to room 351 with chart and belongings. Bedside update given to Chloe and questions answered.
--- NOTE | 2018-09-08 16:29 | NUR ---
Pt was transfered to room 351 from ICU. He is awake and A/Ox4, flat affect noted. Pt denies pain or discomfort at this time. Lindsay cath to DD is draining clear, yellow urine at this time. Pt has multiple healing scratches noted to bilateral upper and lower extremites. Pt repositioned in bed. Denies any needs. Family at bedside.
--- NOTE | 2018-09-08 20:15 | NUR ---
Shift assessment complete. PT resting in bed, awake, a&o, cooperative c cares. Pt denies pain or other c/o at this time. IV patent. Pt deneis needs. Call light in reach, will monitor.
[2018-09-09 03:49] VITALS: BP 115/60; PULSE 85; TEMP 98.9
[2018-09-09 07:39] VITALS: BP 119/75; PULSE 95; TEMP 97.6
--- NOTE | 2018-09-09 08:00 | NUR ---
PT FOUND ON RA THIS AM. SPO2 85% O2 BACK ON @ 2 LPM SPO2 SLOWLY INCREASED TO 89%. O2 TURNED UP TO 3 LPM NC SPO2 91%.
--- NOTE | 2018-09-09 08:18 | NUR ---
Pt resting in bed with call light within reach. Flat affect, but responds to questions. Lindsay intact and draining clear yellow urine. IVF infusing per orders. Denies further needs at this time; will continue to monitor.
[2018-09-09 09:04] LABS: BASO % 0.1 % (0.0-2.0); EOS # 0.2 (0.0-0.7); EOS % 2.5 % (0-4.0); GRAN # 5.9 (1.4-6.5); GRAN % 66.7 % (42.2-75.2); HEMATOCRIT 40.7 % (42.0-52.0); HEMOGLOBIN 13.8 g/dl (13.5-18.0); LYMPH # 1.7 (1.2-3.4); LYMPH % 19.3 % (20.0-51.0); MEAN CELL VOLUME 93 fl (80.0-100.0); MEAN CORPUSCULAR HEMOGLOBIN 32 pg (27.0-31.0); MEAN CORPUSCULAR HGB CONC 34 g/dl (33.0-37.0); MEAN PLATELET VOLUME 11.5 fl (7.4-10.4); MONO % 10.9 % (1.7-9.3); PLATELET COUNT 123 K/mm3 (130-400); RED BLOOD COUNT 4.38 M/mm3 (4.20-5.60); REDCELL DISTRIBUTION WIDTH-CV 13.7 % (11.5-14.5)
[2018-09-09 09:12] LABS: CALCIUM 9.2 mg/dL (8.4-10.2); CREATININE, serum 1.85 mg/dL (0.66-1.25); POTASSIUM 3.5 mmol/L (3.4-5.0)
[2018-09-09 11:21] VITALS: BP 145/63; PULSE 104; TEMP 97.4
--- NOTE | 2018-09-09 12:00 | NUR ---
Pt's swan removed per orders; tolerated well; able to void immediately after.
[2018-09-09 13:21] VITALS: BP 145/63; PULSE 104; TEMP 97.4
--- NOTE | 2018-09-09 13:29 | NUR ---
PAM met with the patient to discuss discharge plan. The patient resides at [facility] for long-term care and he reports that he would like to return back to [facility] upon discharge. Patient choice form signed by the patient. The patient is to discharge today, 09/09, back to [facility] today for long-term care. Transportation was set for around [id number]. PAM informed the patient and patient's nurse. They were both in agreeance. No additional needs at this time.
--- NOTE | 2018-09-09 13:33 | NUR ---
Report called to HERMAN Hickey at [facility]. INT and tele removed. Paperwork reviewed. [facility] transportation here to picking crew supervisor patient. Pt assisted to dress. Pt discharges.
== END 2018-09-09 13:34 ==
LOC: COL.ER 01:14 → ICU 02:53 → MEDICAL 16:02
PROVIDERS: Emergency Medicine; ADMIT Hospitalist
DX: N17.9 Acute kidney failure, unspecified (principal); I13.10 Hypertensive heart and chronic kidney disease without heart failure, with stage 1 through stage 4 chronic kidney disease, or unspecified chronic kidney disease; E11.22 Type 2 diabetes mellitus with diabetic chronic kidney disease; N18.9 Chronic kidney disease, unspecified; Z79.4 Long term (current) use of insulin; E78.5 Hyperlipidemia, unspecified; E87.6 Hypokalemia; T50.2X1A Poisoning by carbonic-anhydrase inhibitors, benzothiadiazides and other diuretics, accidental (unintentional), initial encounter; R60.0 Localized edema; F20.9 Schizophrenia, unspecified; Z95.828 Presence of other vascular implants and grafts; Z87.891 Personal history of nicotine dependence; I27.81 Cor pulmonale (chronic); Z79.899 Other long term (current) drug therapy
CPT/HCPCS: G0378; J1644; J1815; J2405; J3480; J7030

== ENCOUNTER → 2018-09-25 | Outpatient (CLI) | payer MEDICARE, MEDICAID ==
[~2018-09-25] MED LIST changes: +AMARYL 2MG T2 MG/TAB PO; +BANOPHEN25 M1 PO; +COLACE 100100 MG/CAP PO; +DEMADEX 20MG20 M1 PO; +INVEGA SUSTENNA IM; +K-DUR20 MEQ PO; +LANTUS SOLOS100 U/ML SQ; +LANTUS100 U/ML SQ; +LEVEMIR FLEX100 U/ML SQ; +LIQUIFILM TEARS15 ML OU; +MIDAMOR 5MG TAB5 MG PO; +NOVOLOG FLEX100 U/ML SQ; +TRULICITY0.75 MG/0. SQ; +TYLENOL 325MG325 MG PO; +VISTARIL 2525 MG/CAP PO; +ZAROXOLYN5 MG PO
[2018-09-25 18:34] LABS: ALBUMIN 3.3 gm/dL (3.5-5.0); BILIRUBIN,TOTAL 1.4 mg/dL (0.0-1.0); CALCIUM 9.2 mg/dL (8.4-10.2); CREATININE, serum 1.94 mg/dL (0.66-1.25); POTASSIUM 4.7 mmol/L (3.4-5.0)
== END ==
LOC: COL.LAB 17:49 → ZCOL.LAB 17:49
PROVIDERS: Internal Medicine
DX: I12.9 Hypertensive chronic kidney disease with stage 1 through stage 4 chronic kidney disease, or unspecified chronic kidney disease (principal); N18.9 Chronic kidney disease, unspecified

== ENCOUNTER → 2018-10-10 | Outpatient (CLI) | payer MEDICARE, MEDICAID ==
[2018-10-12 09:53] LABS: CALCIUM 9.2 mg/dL (8.4-10.2); CREATININE, serum 1.55 mg/dL (0.66-1.25); POTASSIUM 4.8 mmol/L (3.4-5.0)
== END ==
LOC: ZCOL.LAB 09:00 → ZLAB.STJ 09:00
PROVIDERS: Internal Medicine
DX: I12.9 Hypertensive chronic kidney disease with stage 1 through stage 4 chronic kidney disease, or unspecified chronic kidney disease (principal)

== ENCOUNTER → 2018-11-20 | Outpatient (CLI) | payer MEDICARE, MEDICAID ==
[2018-11-20 14:04] LABS: ALBUMIN 3.3 gm/dL (3.5-5.0); BILIRUBIN,TOTAL 1.6 mg/dL (0.0-1.0); CALCIUM 9.4 mg/dL (8.4-10.2); CREATININE, serum 1.59 (0.66-1.25); MAGNESIUM 2.1 mg/dL (1.6-2.3); POTASSIUM 4.2 mmol/L (3.4-5.0); TOTAL PROTEIN 7.4 gm/dL (6.4-8.2)
== END ==
LOC: ZCOL.LAB 13:33
PROVIDERS: Internal Medicine
DX: I12.9 Hypertensive chronic kidney disease with stage 1 through stage 4 chronic kidney disease, or unspecified chronic kidney disease (principal)

== ENCOUNTER → 2018-11-26 | Outpatient (CLI) | payer MEDICARE, MEDICAID ==
[2018-11-26 12:10] LABS: BASO % 0.8 % (0.0-2.0); EOS # 0.1 (0.0-0.7); EOS % 2.6 % (0-4.0); GRAN # 2.8 (1.4-6.5); GRAN % 56.4 % (42.2-75.2); HEMOGLOBIN 11.9 g/dl (13.5-18.0); LYMPH # 1.4 (1.2-3.4); LYMPH % 27.4 % (20.0-51.0); MEAN CELL VOLUME 99 fl (80.0-100.0); MEAN CORPUSCULAR HEMOGLOBIN 32 pg (27.0-31.0); MEAN CORPUSCULAR HGB CONC 32 g/dl (33.0-37.0); MEAN PLATELET VOLUME 11.4 fl (7.4-10.4); MONO # 0.6 (0.1-0.6); MONO % 12.6 % (1.7-9.3); PLATELET COUNT 136 K/mm3 (130-400); RED BLOOD COUNT 3.72 M/mm3 (4.20-5.60); REDCELL DISTRIBUTION WIDTH-CV 14.7 % (11.5-14.5)
[2018-11-26 12:14] LABS: ALBUMIN 3.6 gm/dL (3.5-5.0); BILIRUBIN,TOTAL 1.7 mg/dL (0.0-1.0); CALCIUM 9.3 mg/dL (8.4-10.2); CREATININE, serum 1.64 (0.66-1.25); HEMATOCRIT 36.9 % (42.0-52.0); MAGNESIUM 2.2 mg/dL (1.6-2.3); POTASSIUM 3.9 mmol/L (3.4-5.0); TOTAL PROTEIN 7.9 gm/dL (6.4-8.2)
== END ==
LOC: ZCOL.LAB 11:28
PROVIDERS: Internal Medicine
DX: I12.9 Hypertensive chronic kidney disease with stage 1 through stage 4 chronic kidney disease, or unspecified chronic kidney disease (principal); N18.9 Chronic kidney disease, unspecified

== ENCOUNTER → 2018-12-10 | Outpatient (REF) ==
[2018-12-10 15:22] LABS: ALBUMIN 3.7 gm/dL (3.5-5.0); BILIRUBIN,TOTAL 1.6 mg/dL (0.0-1.0); CALCIUM 9.3 mg/dL (8.4-10.2); CREATININE, serum 1.68 (0.66-1.25); POTASSIUM 4.1 mmol/L (3.4-5.0); TOTAL PROTEIN 7.9 gm/dL (6.4-8.2)
== END ==
LOC: ZCOL.LAB 14:29
PROVIDERS: Internal Medicine
DX: I12.9 Hypertensive chronic kidney disease with stage 1 through stage 4 chronic kidney disease, or unspecified chronic kidney disease (principal); N18.9 Chronic kidney disease, unspecified

== ENCOUNTER → 2018-12-19 | Outpatient (REF) ==
[2018-12-19 11:53] LABS: ALBUMIN 3.3 gm/dL (3.5-5.0); BILIRUBIN,TOTAL 1.5 mg/dL (0.0-1.0); CREATININE, serum 1.54 (0.66-1.25); TOTAL PROTEIN 7.1 gm/dL (6.4-8.2)
== END ==
LOC: ZCOL.LAB 11:34
PROVIDERS: Internal Medicine
DX: E11.22 Type 2 diabetes mellitus with diabetic chronic kidney disease (principal)

== ENCOUNTER → 2019-01-31 | Outpatient (CLI) | payer MEDICARE, MEDICAID ==
[2019-01-31 20:52] LABS: ALBUMIN 3.4 gm/dL (3.5-5.0); CALCIUM 9.2 mg/dL (8.4-10.2); CHOLESTEROL RISK RATIO 3.4; CREATININE, serum 1.68 (0.66-1.25); POTASSIUM 4.2 mmol/L (3.4-5.0); TOTAL PROTEIN 7.3 gm/dL (6.4-8.2)
[2019-01-31 21:21] LABS: THYROID STIMULATING HORMONE 1.18 uIU/mL (0.465-4.680)
== END ==
LOC: ZCOL.LAB 16:27
PROVIDERS: Internal Medicine
DX: I12.9 Hypertensive chronic kidney disease with stage 1 through stage 4 chronic kidney disease, or unspecified chronic kidney disease (principal); E78.5 Hyperlipidemia, unspecified; E03.9 Hypothyroidism, unspecified; N18.9 Chronic kidney disease, unspecified

== ENCOUNTER → 2019-02-20 | Outpatient (CLI) | payer MEDICARE, MEDICAID ==
[2019-02-20 13:59] LABS: CALCIUM 8.5 mg/dL (8.4-10.2); CREATININE, serum 0.43 (0.66-1.25); POTASSIUM 4.7 mmol/L (3.4-5.0)
== END ==
LOC: ZCOL.LAB 09:26
PROVIDERS: Internal Medicine
DX: I12.9 Hypertensive chronic kidney disease with stage 1 through stage 4 chronic kidney disease, or unspecified chronic kidney disease (principal); N18.9 Chronic kidney disease, unspecified

== ENCOUNTER → 2019-03-25 | Outpatient (CLI) | payer MEDICARE, MEDICAID ==
[2019-03-25 17:50] LABS: URINE PROTEIN:CREAT RATIO 0.19 (0.00-0.14)
[2019-03-25 18:00] LABS: CALCIUM 9.3 mg/dL (8.4-10.2); CREATININE, serum 1.61 (0.66-1.25); POTASSIUM 3.9 mmol/L (3.4-5.0)
== END ==
LOC: ZCOL.LAB 15:21
PROVIDERS: Internal Medicine Nephrology
DX: N18.3 Chronic kidney disease, stage 3 (moderate) (principal)

== ENCOUNTER → 2019-05-23 | Outpatient (CLI) | payer MEDICARE, MEDICAID ==
[2019-05-23 18:18] LABS: CALCIUM 9.1 mg/dL (8.4-10.2); CREATININE, serum 1.79 (0.66-1.25); POTASSIUM 4.1 mmol/L (3.4-5.0)
== END ==
LOC: ZCOL.LAB 16:00
PROVIDERS: Internal Medicine
DX: I12.9 Hypertensive chronic kidney disease with stage 1 through stage 4 chronic kidney disease, or unspecified chronic kidney disease (principal)

== ENCOUNTER → 2019-07-30 | Outpatient (CLI) | payer MEDICARE, MEDICAID | LOC: COL.VAS 10:41 | DX: E11.22 Type 2 diabetes mellitus with diabetic chronic kidney disease (principal); N18.3 Chronic kidney disease, stage 3 (moderate); R07.89 Other chest pain; R06.02 Shortness of breath ==

== ENCOUNTER → 2019-08-19 | Outpatient (CLI) | payer MEDICARE, MEDICAID ==
[2019-08-19 12:19] LABS: CALCIUM 9.1 mg/dL (8.4-10.2); CREATININE, serum 1.85 (0.66-1.25)
== END ==
LOC: ZCOL.LAB 11:53
PROVIDERS: Internal Medicine
DX: R79.89 Other specified abnormal findings of blood chemistry (principal)

== ENCOUNTER → 2019-08-29 | Outpatient (CLI) | payer MEDICARE, MEDICAID | LOC: ZCOL.LAB 12:04 | DX: E11.22 Type 2 diabetes mellitus with diabetic chronic kidney disease (principal) ==

== ENCOUNTER → 2019-11-24 | Outpatient (CLI) | payer MEDICARE, MEDICAID ==
[2019-11-24 12:21] LABS: CREATININE, serum 1.63 (0.66-1.25); POTASSIUM 4.1 mmol/L (3.4-5.0)
== END ==
LOC: ZCOL.LAB 11:28
PROVIDERS: Internal Medicine
DX: I12.9 Hypertensive chronic kidney disease with stage 1 through stage 4 chronic kidney disease, or unspecified chronic kidney disease (principal)

== ENCOUNTER → 2019-12-24 | Outpatient (CLI) | payer MEDICARE, MEDICAID ==
[2019-12-24 15:28] LABS: BASO % 0.6 % (0.0-2.0); EOS # 0.2 (0.0-0.7); GRAN # 2.4 (1.4-6.5); GRAN % 51.3 % (42.2-75.2); HEMATOCRIT 38.7 % (42.0-52.0); HEMOGLOBIN 12.6 g/dl (13.5-18.0); LYMPH # 1.5 (1.2-3.4); LYMPH % 32.3 % (20.0-51.0); MEAN CELL VOLUME 99 fl (80.0-100.0); MEAN CORPUSCULAR HEMOGLOBIN 32 pg (27.0-31.0); MEAN CORPUSCULAR HGB CONC 33 g/dl (33.0-37.0); MEAN PLATELET VOLUME 11.7 fl (7.4-10.4); MONO # 0.6 (0.1-0.6); MONO % 11.8 % (1.7-9.3); PLATELET COUNT 131 K/mm3 (130-400); RED BLOOD COUNT 3.91 M/mm3 (4.20-5.60); REDCELL DISTRIBUTION WIDTH-CV 13.9 % (11.5-14.5)
[2019-12-24 15:36] LABS: ALBUMIN 3.5 gm/dL (3.5-5.0); BILIRUBIN UNCONJUGATED 1.2 mg/dL (0.0-1.1); BILIRUBIN,DIRECT 0.4 mg/dL (0.0-0.4); BILIRUBIN,TOTAL 1.6 mg/dL (0.0-1.0); TOTAL PROTEIN 7.2 gm/dL (6.4-8.2)
[2019-12-24 15:48] LABS: CHOLESTEROL RISK RATIO 3.4
== END ==
LOC: ZCOL.LAB 14:27
PROVIDERS: Internal Medicine
DX: I12.9 Hypertensive chronic kidney disease with stage 1 through stage 4 chronic kidney disease, or unspecified chronic kidney disease (principal); N18.3 Chronic kidney disease, stage 3 (moderate)

== ENCOUNTER → 2020-02-09 | Outpatient (CLI) | payer MEDICARE, MEDICAID ==
[2020-02-09 12:26] LABS: ALBUMIN 3.5 gm/dL (3.5-5.0); BILIRUBIN,TOTAL 1.4 mg/dL (0.0-1.0); CALCIUM 8.9 mg/dL (8.4-10.2); CREATININE, serum 1.55 (0.66-1.25); POTASSIUM 4.6 mmol/L (3.4-5.0)
[2020-02-09 12:53] LABS: CHOLESTEROL RISK RATIO 3.1
[2020-02-09 13:24] LABS: THYROID STIMULATING HORMONE 1.27 uIU/mL (0.465-4.680)
== END ==
LOC: ZCOL.LAB 11:26
PROVIDERS: Internal Medicine
DX: E78.5 Hyperlipidemia, unspecified (principal); I27.81 Cor pulmonale (chronic); R94.6 Abnormal results of thyroid function studies

== ENCOUNTER → 2020-03-16 | Outpatient (CLI) | payer MEDICARE, MEDICAID | LOC: COL.VAS 10:01 | DX: L03.119 Cellulitis of unspecified part of limb (principal) ==

== ENCOUNTER 2020-03-17 17:49 | Emergency (ER) | payer MEDICARE, MEDICAID ==
[~2020-03-17] VITALS: Ht 167.6 cm; Wt 145.5 kg
[2020-03-17 18:05] VITALS: TEMP 97.2
[2020-03-17 18:42] LABS: BASO % 0.5 % (0.0-2.0); EOS # 0.2 (0.0-0.7); EOS % 5.1 % (0-4.0); GRAN % 49.4 % (42.2-75.2); HEMATOCRIT 39.7 % (42.0-52.0); HEMOGLOBIN 12.8 g/dl (13.5-18.0); LYMPH # 1.2 (1.2-3.4); LYMPH % 30.3 % (20.0-51.0); MEAN CELL VOLUME 99 fl (80.0-100.0); MEAN CORPUSCULAR HEMOGLOBIN 32 pg (27.0-31.0); MEAN CORPUSCULAR HGB CONC 32 g/dl (33.0-37.0); MEAN PLATELET VOLUME 11.5 fl (7.4-10.4); MONO # 0.6 (0.1-0.6); MONO % 14.4 % (1.7-9.3); PLATELET COUNT 101 K/mm3 (130-400); RED BLOOD COUNT 4.03 M/mm3 (4.20-5.60); REDCELL DISTRIBUTION WIDTH-CV 13.7 % (11.5-14.5)
[2020-03-17 18:51] LABS: COLLECTION METHOD CLEAN CATCH
[2020-03-17 18:55] LABS: MUCOUS Present /lpf; PH 5 (5-8); SQUAMOUS EPITHELIAL 0-2 /hpf; URINE APPEARANCE Hazy; URINE BACTERIA None Seen /hpf; URINE BILIRUBIN Negative (NEGATIVE); URINE BLOOD Negative (NEGATIVE); URINE COLOR Yellow; URINE GLUCOSE Negative (NEGATIVE); URINE KETONE Negative (NEGATIVE); URINE LEUKOCYTE ESTERASE Negative (NEGATIVE); URINE NITRATE Negative (NEGATIVE); URINE PROTEIN(semi-quant) Negative (NEGATIVE); URINE RBC 0-2 /hpf; URINE UROBILINOGEN Negative (NEGATIVE)
[2020-03-17 18:56] LABS: ALANINE AMINOTRANSFERASE 19 U/L (4-49); ALBUMIN 3.9 gm/dL (3.5-5.0); ALKALINE PHOSPHATASE 69 U/L (50-136); ANION GAP 6 mmol/L (7-16); AST,SGOT 46 U/L (15-37); BILIRUBIN,TOTAL 1.7 mg/dL (0.0-1.0); BLOOD UREA NITROGEN 17 mg/dL (9-20); C-REACTIVE PROTEIN 2.2 mg/dL (0.0-0.9); CALCIUM 8.9 mg/dL (8.4-10.2); CARBON DIOXIDE 25 mmol/L (22-30); CHLORIDE 106 mmol/L (98-107); CREATININE, serum 1.67 (0.66-1.25); GLUCOSE 124 mg/dL (74-106); POTASSIUM 4.6 mmol/L (3.4-5.0); SODIUM 137 mmol/L (137-145)
[2020-03-17 19:07] LABS: TROPONIN-I < 0.012 ng/mL (0.000-0.035)
[2020-03-17 20:21] VITALS: BP 117/69; PULSE 70
== END 2020-03-17 20:22 | disposition home or self-care (01) ==
LOC: COL.ER 17:49
PROVIDERS: Emergency Medicine
DX: I89.0 Lymphedema, not elsewhere classified (principal); R60.0 Localized edema; E11.9 Type 2 diabetes mellitus without complications; I10 Essential (primary) hypertension; Z79.4 Long term (current) use of insulin
CPT/HCPCS: J7040

== ENCOUNTER → 2020-03-23 | Outpatient (CLI) | payer MEDICARE, MEDICAID ==
[2020-03-23 10:01] LABS: BASO # 0.1 (0.0-0.2); BASO % 1.2 % (0.0-2.0); EOS # 0.4 (0.0-0.7); EOS % 7.6 % (0-4.0); GRAN # 2.4 (1.4-6.5); GRAN % 49.5 % (42.2-75.2); HEMATOCRIT 39.2 % (42.0-52.0); HEMOGLOBIN 12.8 g/dl (13.5-18.0); LYMPH # 1.5 (1.2-3.4); LYMPH % 30.3 % (20.0-51.0); MEAN CELL VOLUME 98 fl (80.0-100.0); MEAN CORPUSCULAR HEMOGLOBIN 32 pg (27.0-31.0); MEAN CORPUSCULAR HGB CONC 33 g/dl (33.0-37.0); MEAN PLATELET VOLUME 11.4 fl (7.4-10.4); MONO # 0.6 (0.1-0.6); MONO % 11.2 % (1.7-9.3); PLATELET COUNT 113 K/mm3 (130-400); RED BLOOD COUNT 3.99 M/mm3 (4.20-5.60); REDCELL DISTRIBUTION WIDTH-CV 13.7 % (11.5-14.5)
[2020-03-23 10:05] LABS: CHOLESTEROL RISK RATIO 3.1; CREATININE, serum 1.86 (0.66-1.25); POTASSIUM 4.3 mmol/L (3.4-5.0)
== END ==
LOC: ZCOL.LAB 09:37
PROVIDERS: Internal Medicine
DX: I12.9 Hypertensive chronic kidney disease with stage 1 through stage 4 chronic kidney disease, or unspecified chronic kidney disease (principal); E78.5 Hyperlipidemia, unspecified; E11.22 Type 2 diabetes mellitus with diabetic chronic kidney disease; N18.9 Chronic kidney disease, unspecified; I27.81 Cor pulmonale (chronic)

== ENCOUNTER → 2020-05-17 | Outpatient (CLI) | payer MEDICARE, MEDICAID ==
[2020-05-17 21:37] LABS: CALCIUM 8.9 mg/dL (8.4-10.2); CREATININE, serum 1.51 (0.66-1.25); POTASSIUM 4.4 mmol/L (3.4-5.0)
[2020-05-17 22:19] LABS: URINE PROTEIN:CREAT RATIO 0.03 (0.00-0.14)
== END ==
LOC: COL.LAB 21:14
PROVIDERS: Internal Medicine Nephrology
DX: I12.9 Hypertensive chronic kidney disease with stage 1 through stage 4 chronic kidney disease, or unspecified chronic kidney disease (principal); N18.9 Chronic kidney disease, unspecified

== ENCOUNTER → 2020-08-23 | Outpatient (CLI) | payer MEDICARE, MEDICAID ==
[2020-08-23 11:55] LABS: CALCIUM 8.9 mg/dL (8.4-10.2); CREATININE, serum 1.45 (0.66-1.25); POTASSIUM 4.4 mmol/L (3.4-5.0)
== END ==
LOC: ZCOL.LAB 10:52
PROVIDERS: Internal Medicine
DX: I12.9 Hypertensive chronic kidney disease with stage 1 through stage 4 chronic kidney disease, or unspecified chronic kidney disease (principal); N18.9 Chronic kidney disease, unspecified

== ENCOUNTER 2020-10-08 16:17 | Emergency (ER) | payer MEDICARE, MEDICAID ==
[~2020-10-08] VITALS: Ht 167.6 cm; Wt 136.4 kg
[2020-10-08 16:30] VITALS: BP 122/82; TEMP 97.7
[2020-10-08 17:15] LABS: BASO % 0.9 % (0.0-2.0); EOS # 0.2 (0.0-0.7); EOS % 3.5 % (0-4.0); GRAN # 2.4 (1.4-6.5); GRAN % 52.5 % (42.2-75.2); HEMATOCRIT 42.4 % (42.0-52.0); HEMOGLOBIN 13.4 g/dl (13.5-18.0); LYMPH # 1.5 (1.2-3.4); LYMPH % 31.6 % (20.0-51.0); MEAN CELL VOLUME 101 fl (80.0-100.0); MEAN CORPUSCULAR HEMOGLOBIN 32 pg (27.0-31.0); MEAN CORPUSCULAR HGB CONC 32 g/dl (33.0-37.0); MEAN PLATELET VOLUME 10.9 fl (7.4-10.4); MONO # 0.5 (0.1-0.6); MONO % 11.3 % (1.7-9.3); PLATELET COUNT 115 K/mm3 (130-400); RED BLOOD COUNT 4.22 M/mm3 (4.20-5.60); REDCELL DISTRIBUTION WIDTH-CV 13.3 % (11.5-14.5)
[2020-10-08 17:19] LABS: BILIRUBIN,TOTAL 1.4 mg/dL (0.0-1.0); CALCIUM 8.8 mg/dL (8.4-10.2); CREATININE, serum 1.51 (0.66-1.25); POTASSIUM 4.5 mmol/L (3.4-5.0)
[2020-10-08 17:24] LABS: C-REACTIVE PROTEIN 0.5 mg/dL (0.0-0.9)
[2020-10-08] MEDS ORDERED: BACTRIM DS 8001 TAB PO (19:35)
[2020-10-08 20:13] VITALS: PULSE 61
== END 2020-10-08 20:13 | disposition home or self-care (01) ==
LOC: COL.ER 16:17
PROVIDERS: Nurse Practitioner
DX: I89.0 Lymphedema, not elsewhere classified (principal); Z79.4 Long term (current) use of insulin
CPT/HCPCS: A6456

== ENCOUNTER → 2020-11-19 | Outpatient (CLI) | payer MEDICARE, MEDICAID ==
[~2020-11-19] MED LIST changes: +ASPIRIN 81M81 MG/TA2 PO; +BACTRIM DS 8001 TAB PO; +FLINTSTONES PLU1 CT1 PO; +VITAMIN D 50,1.25 MG PO; +VITAMINC500CH
[2020-11-19 15:03] LABS: ALBUMIN 3.3 gm/dL (3.5-5.0); BILIRUBIN,TOTAL 1.2 mg/dL (0.0-1.0); CALCIUM 8.8 mg/dL (8.4-10.2); CREATININE, serum 1.43 (0.66-1.25); MAGNESIUM 2.4 mg/dL (1.6-2.3); POTASSIUM 4.1 mmol/L (3.4-5.0); TOTAL PROTEIN 7.2 gm/dL (6.4-8.2)
== END ==
LOC: ZCOL.LAB 13:27
PROVIDERS: Internal Medicine
DX: E78.5 Hyperlipidemia, unspecified (principal)

== ENCOUNTER → 2021-02-10 | Outpatient (CLI) | payer MEDICARE, MEDICAID ==
[2021-02-10 11:03] LABS: BASO % 0.5 % (0.0-2.0); EOS # 0.1 (0.0-0.7); EOS % 3.3 % (0-4.0); GRAN # 2.1 (1.4-6.5); GRAN % 53.9 % (42.2-75.2); LYMPH # 1.3 (1.2-3.4); MEAN CELL VOLUME 98 fl (80.0-100.0); MEAN CORPUSCULAR HEMOGLOBIN 32 pg (27.0-31.0); MEAN CORPUSCULAR HGB CONC 32 g/dl (33.0-37.0); MEAN PLATELET VOLUME 10.8 fl (7.4-10.4); MONO # 0.4 (0.1-0.6); PLATELET COUNT 116 K/mm3 (130-400); RED BLOOD COUNT 3.78 M/mm3 (4.20-5.60); REDCELL DISTRIBUTION WIDTH-CV 14.2 % (11.5-14.5)
[2021-02-10 11:08] LABS: ALBUMIN 3.2 gm/dL (3.5-5.0); BILIRUBIN,TOTAL 1.5 mg/dL (0.0-1.0); CALCIUM 8.5 mg/dL (8.4-10.2); CHOLESTEROL RISK RATIO 2.6; CREATININE, serum 1.3 (0.66-1.25); MAGNESIUM 1.8 mg/dL (1.6-2.3); POTASSIUM 3.8 mmol/L (3.4-5.0); TOTAL PROTEIN 6.7 gm/dL (6.4-8.2)
[2021-02-10 11:51] LABS: THYROID STIMULATING HORMONE 1.66 uIU/mL (0.465-4.680)
== END ==
LOC: ZCOL.LAB 10:51 → EDSTATUS 13:28
PROVIDERS: Internal Medicine
DX: E11.22 Type 2 diabetes mellitus with diabetic chronic kidney disease (principal); E78.5 Hyperlipidemia, unspecified

== ENCOUNTER 2021-04-06 03:18 | Observation (INO) | payer MEDICARE, MEDICAID ==
[~2021-04-06] VITALS: Ht 167.7 cm; Wt 155.6 kg
[~2021-04-06 03:18] MED LIST changes: -ASPIRIN 81M81 MG/TA2 PO; -FLINTSTONES PLU1 CT1 PO; -VITAMIN D 50,1.25 MG PO; -VITAMINC500CH
[2021-04-06 03:40] LABS: BASO % 0.6 % (0.0-2.0); EOS # 0.2 (0.0-0.7); GRAN # 2.2 (1.4-6.5); GRAN % 44.7 % (42.2-75.2); HEMATOCRIT 37.5 % (42.0-52.0); HEMOGLOBIN 12.4 g/dl (13.5-18.0); LYMPH # 1.8 (1.2-3.4); LYMPH % 37.2 % (20.0-51.0); MEAN CELL VOLUME 98 fl (80.0-100.0); MEAN CORPUSCULAR HEMOGLOBIN 32 pg (27.0-31.0); MEAN CORPUSCULAR HGB CONC 33 g/dl (33.0-37.0); MONO # 0.7 (0.1-0.6); MONO % 13.3 % (1.7-9.3); PLATELET COUNT 114 K/mm3 (130-400); RED BLOOD COUNT 3.83 M/mm3 (4.20-5.60); REDCELL DISTRIBUTION WIDTH-CV 13.3 % (11.5-14.5)
[2021-04-06 03:46] LABS: INR 1.1 (0.8-3.0); PROTHROMBIN TIME 12.3 SECONDS (9.7-12.8)
[2021-04-06 03:51] LABS: ALANINE AMINOTRANSFERASE 21 U/L (4-49); ALBUMIN 3.7 gm/dL (3.5-5.0); ALKALINE PHOSPHATASE 67 U/L (50-136); ANION GAP 7 mmol/L (7-16); AST,SGOT 47 U/L (15-37); BILIRUBIN,TOTAL 1.2 mg/dL (0.0-1.0); BLOOD UREA NITROGEN 21 mg/dL (9-20); C-REACTIVE PROTEIN 1.6 mg/dL (0.0-0.9); CALCIUM 9.2 mg/dL (8.4-10.2); CARBON DIOXIDE 24 mmol/L (22-30); CHLORIDE 109 mmol/L (98-107); CREATINE KINASE 88 U/L (55-170); CREATININE, serum 1.63 (0.66-1.25); GLUCOSE 115 mg/dL (74-106); POTASSIUM 3.9 mmol/L (3.4-5.0); SODIUM 139 mmol/L (137-145); TOTAL PROTEIN 7.6 gm/dL (6.4-8.2)
[2021-04-06 04:05] LABS: TROPONIN-I < 0.012 ng/mL (0.000-0.035)
[2021-04-06] MEDS ORDERED: ASPIRIN 81M81 MG/TA2 PO (04:42)
[2021-04-06] MEDS ORDERED: FLINTSTONES PLU1 CT1 PO (04:43)
[2021-04-06] MEDS ORDERED: VITAMIN D 50,1.25 MG PO (04:45)
[2021-04-06] MEDS ORDERED: VITAMINC500CH (04:45)
[2021-04-06 06:44] LABS: CHOLESTEROL 163 mg/dL (120-200); HDL CHOLESTEROL 54 mg/dL; LDL CHOLESTEROL 90 mg/dL; TRIGLYCERIDE 95 mg/dL
[2021-04-06 16:04] VITALS: BP 137/63; PULSE 70; TEMP 98.2
[2021-04-06 20:15] VITALS: BP 132/52; PULSE 67; TEMP 98.1
--- NOTE | 2021-04-06 20:56 | NUR ---
PT RESTING IN BED. EVENING MEDICATIONS GIVEN. PT STATES HE HAS PAIN IN HIS ABDOMEN AND CHEST. HEART RATE AND RHYTHM NORMAL. PT BLE ARE SWOLLEN AND DISCOLORED/REDDENED, ONE BLISTER NOTED TO R LEG. PT DENIES ANY NEEDS AT THIS TIME. WILL CONTINUE TO MONITOR.
[2021-04-06 23:38] VITALS: BP 128/49; PULSE 76; TEMP 97.3
[2021-04-07] VITALS (9 sets, daily range): BP systolic 129–152; BP diastolic 56–75; PULSE 77–91; TEMP 97.4–97.6
--- NOTE | 2021-04-07 05:46 | NUR ---
PT DID NOT APPPEAR TO GET MUCH REST THROUGHOUT THE NIGHT. DENIES ANY NEEDS AT THIS TIME. HAS BEEN NPO SINCE MIDNIGHT FOR PROCEDURE.
[2021-04-07 07:01] LABS: HEMATOCRIT 37.4 % (42.0-52.0); HEMOGLOBIN 12.3 g/dl (13.5-18.0); MEAN CELL VOLUME 97 fl (80.0-100.0); MEAN CORPUSCULAR HEMOGLOBIN 32 pg (27.0-31.0); MEAN CORPUSCULAR HGB CONC 33 g/dl (33.0-37.0); MEAN PLATELET VOLUME 11.2 fl (7.4-10.4); PLATELET COUNT 109 K/mm3 (130-400); RED BLOOD COUNT 3.85 M/mm3 (4.20-5.60); REDCELL DISTRIBUTION WIDTH-CV 13.6 % (11.5-14.5)
[2021-04-07 07:12] LABS: ANION GAP 6 mmol/L (7-16); BLOOD UREA NITROGEN 21 mg/dL (9-20); CARBON DIOXIDE 26 mmol/L (22-30); CHLORIDE 108 mmol/L (98-107); CREATININE, serum 1.68 (0.66-1.25); GLUCOSE 104 mg/dL (74-106); POTASSIUM 3.7 mmol/L (3.4-5.0); SODIUM 140 mmol/L (137-145)
[2021-04-07 07:25] LABS: TROPONIN-I < 0.012 ng/mL (0.000-0.035)
--- NOTE | 2021-04-07 09:52 | NUR ---
NITRO PATCH FOUND TO BE ON PATIENT IN STRESS ROOM, DR. OBRIEN WAS CALLED TO SEE NEXT STEPS AND IF WE SHOULD WAIT. DR. OBRIEN SAID IT WOULD BE FINE AND TO PROCEED WITH STRESS TEST.
--- NOTE | 2021-04-07 12:12 | NUR ---
Sw met with the pt who stated his preference to return back to [facility]. The pt has lived there for 21 years. The pt informed Sw that he needs assistance with bathing and uses a wheelchair. The pt pcp is Dr. Morgan and he gets his medication from the care home. The pt DPOA-HC is Trev Wang [phone] cell. No other needs stated at this time. Sw to follow up as needed. D/c: Back to [facility].
--- NOTE | 2021-04-07 12:27 | NUR ---
Patient will dsicharge back to [facility] today. vegetable farm worker contacted Edelmira at [facility] and advised of the above information. Worker faxed clinicals and will await a time of transfer.
--- NOTE | 2021-04-07 14:45 | NUR ---
Initial visit; Patient thanked Medical Scheduler for looking in on him and offering God's blessings. He states there are no needs at this time.
--- NOTE | 2021-04-07 15:30 | NUR ---
dining service worker faxed dc orders to [facility]. Transportation arranged for 1600 as a metal pickling equipment operator time. Family notified.
--- NOTE | 2021-04-07 18:03 | NUR ---
Patient was discharged at approx. 1600. Jessica picked the patient up and transferred them back to their facility. Patient had no complaints throughout the day. - Stacey Alcala RN
== END 2021-04-07 16:00 | disposition home or self-care (01) ==
LOC: COL.ER 03:18 → MEDICAL 04:38
PROVIDERS: Emergency Medicine; Physician Assistant; Student in an Organized Health Care Education/Training Program; ADMIT Internal Medicine
DX: R07.9 Chest pain, unspecified (principal); R05 Cough; K80.20 Calculus of gallbladder without cholecystitis without obstruction; D63.1 Anemia in chronic kidney disease; D69.6 Thrombocytopenia, unspecified; I13.10 Hypertensive heart and chronic kidney disease without heart failure, with stage 1 through stage 4 chronic kidney disease, or unspecified chronic kidney disease; E11.22 Type 2 diabetes mellitus with diabetic chronic kidney disease; N18.9 Chronic kidney disease, unspecified; F20.9 Schizophrenia, unspecified; E78.5 Hyperlipidemia, unspecified; I27.81 Cor pulmonale (chronic); R60.0 Localized edema; Z79.4 Long term (current) use of insulin; Z79.82 Long term (current) use of aspirin; Z79.899 Other long term (current) drug therapy
CPT/HCPCS: A9500; G0378; J1644; J1815; J2785; Q9967

== ENCOUNTER → 2021-05-19 | Outpatient (CLI) | payer MEDICARE, MEDICAID ==
[~2021-05-19] MED LIST changes: +ASPIRIN 81M81 MG/TA2 PO; +FLINTSTONES PLU1 CT1 PO; +VITAMIN D 50,1.25 MG PO; +VITAMINC500CH
== END ==
LOC: ZCOL.LAB 10:03
DX: E11.22 Type 2 diabetes mellitus with diabetic chronic kidney disease (principal); N18.9 Chronic kidney disease, unspecified

== ENCOUNTER → 2021-05-30 | Outpatient (CLI) | payer MEDICARE, MEDICAID ==
[2021-05-30 11:39] LABS: CALCIUM 8.5 mg/dL (8.4-10.2); CREATININE, serum 1.47 mg/dL (0.72-1.25); POTASSIUM 4.1 mmol/L (3.5-4.5)
== END ==
LOC: ZCOL.LAB 11:31
PROVIDERS: Internal Medicine
DX: E78.5 Hyperlipidemia, unspecified (principal)

== ENCOUNTER → 2021-08-01 | Outpatient (CLI) | payer MEDICARE, MEDICAID | LOC: ZCOL.LAB 10:35 | DX: E11.22 Type 2 diabetes mellitus with diabetic chronic kidney disease (principal) ==

== ENCOUNTER → 2021-12-30 | Outpatient (CLI) | payer MEDICARE, MEDICAID ==
[2021-12-30 10:33] LABS: CALCIUM 8.7 mg/dL (8.4-10.2); CREATININE, serum 1.7 mg/dL (0.72-1.25); POTASSIUM 4.2 mmol/L (3.5-4.5)
== END ==
LOC: ZCOL.LAB 10:15
PROVIDERS: Internal Medicine
DX: I12.9 Hypertensive chronic kidney disease with stage 1 through stage 4 chronic kidney disease, or unspecified chronic kidney disease (principal); N18.9 Chronic kidney disease, unspecified; Z79.899 Other long term (current) drug therapy

== ENCOUNTER 2022-01-18 18:06 | Emergency (ER) | payer MEDICARE, MEDICAID ==
[~2022-01-18] VITALS: Ht 182.9 cm; Wt 159.1 kg
[2022-01-18 19:16] LABS: BASO % 0.8 % (0.0-2.0); EOS # 0.1 K/mm3 (0.0-0.7); EOS % 2.8 % (0.0-4.0); GRAN # 2.5 K/mm3 (1.4-6.5); GRAN % 51.6 % (42.2-75.2); HEMATOCRIT 37.3 % (42.0-52.0); HEMOGLOBIN 12.4 g/dl (13.5-18.0); LYMPH # 1.4 K/mm3 (1.2-3.4); LYMPH % 28.5 % (20.0-51.0); MEAN CELL VOLUME 96 fl (80.0-100.0); MEAN CORPUSCULAR HEMOGLOBIN 32 pg (27-31); MEAN CORPUSCULAR HGB CONC 33 g/dl (33.0-37.0); MEAN PLATELET VOLUME 11.2 fl (7.4-10.4); MONO # 0.8 K/mm3 (0.1-0.6); MONO % 16.1 % (1.7-9.3); PLATELET COUNT 116 K/mm3 (130-400); RED BLOOD COUNT 3.89 M/mm3 (4.20-5.60); REDCELL DISTRIBUTION WIDTH-CV 13.5 % (11.5-14.5)
[2022-01-18 19:27] LABS: ALBUMIN 3.1 gm/dL (3.4-4.8); BILIRUBIN,TOTAL 1.3 mg/dL (0.2-1.2); C-REACTIVE PROTEIN 3.25 mg/dL (0.00-0.50); CALCIUM 9.1 mg/dL (8.4-10.2); CREATININE, serum 1.63 mg/dL (0.72-1.25); POTASSIUM 3.8 mmol/L (3.5-4.5); TOTAL PROTEIN 7.5 gm/dL (6.2-8.1)
[2022-01-18] MEDS ORDERED: DOXYCYCLINE 10100 MG PO (19:49)
[2022-01-18] MEDS ORDERED: AMOXICILLIN 8751 TAB PO (19:49)
[2022-01-18 22:50] VITALS: BP 142/76; PULSE 96; TEMP 98
== END 2022-01-18 22:50 | disposition home or self-care (01) ==
LOC: COL.ER 18:06
PROVIDERS: Physician Assistant
DX: L03.116 Cellulitis of left lower limb (principal); L03.115 Cellulitis of right lower limb; I87.8 Other specified disorders of veins; E66.01 Morbid (severe) obesity due to excess calories; Z88.1 Allergy status to other antibiotic agents; Z87.891 Personal history of nicotine dependence
CPT/HCPCS: J2543; J3370; J7030; J7040

== ENCOUNTER → 2022-02-10 | Outpatient (CLI) | payer MEDICARE, MEDICAID ==
[~2022-02-10] MED LIST changes: +AMOXICILLIN 8751 TAB PO; +DOXYCYCLINE 10100 MG PO
== END ==
LOC: ZCOL.LAB 15:30
DX: E11.22 Type 2 diabetes mellitus with diabetic chronic kidney disease (principal); E03.9 Hypothyroidism, unspecified; E78.5 Hyperlipidemia, unspecified; N18.9 Chronic kidney disease, unspecified

== ENCOUNTER → 2022-03-24 | Outpatient (CLI) | payer MEDICARE, MEDICAID | LOC: ZCOL.LAB 12:06 | DX: L03.90 Cellulitis, unspecified (principal) ==

== ENCOUNTER → 2022-04-11 | Outpatient (CLI) | payer MEDICARE, MEDICAID ==
[~2022-04-11] MED LIST changes: +ALBUTEROL0.83 MG/ML IH; +CRESTOR 10MG10 MG PO; +MULTIPLE VITAMI1 TA1 PO; +NYSTATIN POWDER15 GM TOP; -VITAMIN D 50,1.25 MG PO; +VITAMIND3 5000 PO; +VOLTAREN GEL 1%1 TU TP
[2022-04-11 23:32] LABS: COLLECTION METHOD CLEAN CATCH
[2022-04-12 00:34] LABS: MUCOUS Present (NOT PRESENT); SQUAMOUS EPITHELIAL 0-2 /hpf (0-10); URINE BACTERIA None Seen /hpf (NONE SEEN); URINE RBC 0-2 /hpf (0-2)
[2022-04-12 00:35] LABS: PH 5.5 (5.0-8.5); URINE APPEARANCE Clear (CLEAR/HAZY); URINE BLOOD Negative (NEGATIVE); URINE COLOR Yellow (YELLOW); URINE GLUCOSE Negative (NEGATIVE); URINE KETONE Negative (NEGATIVE); URINE NITRATE Negative (NEGATIVE); URINE PROTEIN(semi-quant) Negative (NEGATIVE); URINE UROBILINOGEN 0.2 E.U/dL (0.2-1.0)
== END ==
LOC: ZCOL.LAB 19:13
PROVIDERS: Internal Medicine
DX: N39.0 Urinary tract infection, site not specified (principal)

== ENCOUNTER 2022-04-16 06:36 | Emergency (ER) | payer MEDICARE, MEDICAID ==
[~2022-04-16] VITALS: Ht 167.6 cm; Wt 159.1 kg
[~2022-04-16 06:36] MED LIST changes: -ALBUTEROL0.83 MG/ML IH; -CRESTOR 10MG10 MG PO; -MULTIPLE VITAMI1 TA1 PO; -NYSTATIN POWDER15 GM TOP; -VOLTAREN GEL 1%1 TU TP
[2022-04-16 06:55] VITALS: TEMP 98.9
[2022-04-16 08:19] LABS: ALBUMIN 2.7 gm/dL (3.4-4.8); BILIRUBIN,TOTAL 0.9 mg/dL (0.2-1.2); CREATININE, serum 1.54 mg/dL (0.72-1.25); POTASSIUM 4.2 mmol/L (3.5-4.5)
[2022-04-16 08:25] LABS: TROPONIN-I 0.01 ng/mL (0.00-0.033)
[2022-04-16] MEDS ORDERED: CRESTOR 10MG10 MG PO (09:04)
[2022-04-16] MEDS ORDERED: MULTIPLE VITAMI1 TA1 PO (09:05)
[2022-04-16] MEDS ORDERED: NYSTATIN POWDER15 GM TOP (09:09)
[2022-04-16] MEDS ORDERED: VOLTAREN GEL 1%1 TU TP (09:10)
[2022-04-16] MEDS ORDERED: ALBUTEROL0.83 MG/ML IH (09:10)
[2022-04-16 09:20] LABS: BASO % 0.5 % (0.0-2.0); EOS # 0.1 K/mm3 (0.0-0.7); EOS % 2.1 % (0.0-4.0); GRAN # 2.6 K/mm3 (1.4-6.5); GRAN % 61.4 % (42.2-75.2); LYMPH % 22.9 % (20.0-51.0); MEAN CELL VOLUME 95 fl (80.0-100.0); MEAN CORPUSCULAR HGB CONC 33 g/dl (33.0-37.0); MEAN PLATELET VOLUME 10.4 fl (7.4-10.4); MONO # 0.5 K/mm3 (0.1-0.6); MONO % 12.6 % (1.7-9.3); REDCELL DISTRIBUTION WIDTH-CV 14.3 % (11.5-14.5)
[2022-04-16 09:21] LABS: HEMATOCRIT 29.4 % (42.0-52.0); HEMOGLOBIN 9.6 g/dl (13.5-18.0); MEAN CORPUSCULAR HEMOGLOBIN 31 pg (27-31)
[2022-04-16 09:22] LABS: PLATELET COUNT 70 K/mm3 (130-400)
[2022-04-16 10:38] VITALS: BP 132/82; PULSE 92
== END 2022-04-16 10:46 | disposition home or self-care (01) ==
LOC: COL.ER 06:36
PROVIDERS: Personal Emergency Response Attendant
DX: I12.9 Hypertensive chronic kidney disease with stage 1 through stage 4 chronic kidney disease, or unspecified chronic kidney disease (principal); N18.9 Chronic kidney disease, unspecified; R06.00 Dyspnea, unspecified; E66.01 Morbid (severe) obesity due to excess calories; Z68.43 Body mass index [BMI] 50.0-59.9, adult
CPT/HCPCS: J1940

== ENCOUNTER → 2022-04-26 | Outpatient (CLI) | payer MEDICARE, MEDICAID ==
[~2022-04-26] MED LIST changes: +ALBUTEROL0.83 MG/ML IH; +CRESTOR 10MG10 MG PO; +MULTIPLE VITAMI1 TA1 PO; +NYSTATIN POWDER15 GM TOP; +VOLTAREN GEL 1%1 TU TP
== END ==
LOC: ZCOL.LAB 11:06
DX: I89.0 Lymphedema, not elsewhere classified (principal)

== ENCOUNTER → 2022-12-06 | Outpatient (REF) | payer MEDICARE, MEDICAID | LOC: ZCOL.LAB 16:12 | DX: T81.30XA Disruption of wound, unspecified, initial encounter (principal) ==

== ENCOUNTER 2022-12-20 15:49 | Emergency (ER) | payer MEDICARE, MEDICAID ==
[~2022-12-20] VITALS: Ht 167.6 cm; Wt 150.0 kg
[2022-12-20 15:55] VITALS: TEMP 97.6
[2022-12-20 16:33] LABS: BASO % 0.7 % (0.0-2.0); EOS # 0.2 K/mm3 (0.0-0.7); EOS % 3.7 % (0.0-4.0); GRAN # 2.3 K/mm3 (1.4-6.5); GRAN % 50.7 % (42.2-75.2); HEMOGLOBIN 11.1 g/dl (13.5-18.0); LYMPH # 1.5 K/mm3 (1.2-3.4); LYMPH % 31.9 % (20.0-51.0); MEAN CELL VOLUME 92 fl (80.0-100.0); MEAN CORPUSCULAR HEMOGLOBIN 30 pg (27-31); MEAN CORPUSCULAR HGB CONC 33 g/dl (33.0-37.0); MEAN PLATELET VOLUME 11.2 fl (7.4-10.4); MONO # 0.6 K/mm3 (0.1-0.6); MONO % 12.8 % (1.7-9.3); PLATELET COUNT 112 K/mm3 (130-400); RED BLOOD COUNT 3.65 M/mm3 (4.20-5.60); REDCELL DISTRIBUTION WIDTH-CV 14.6 % (11.5-14.5)
[2022-12-20 16:35] LABS: HEMATOCRIT 33.7 % (42.0-52.0)
[2022-12-20 17:09] LABS: ALBUMIN 2.7 gm/dL (3.4-4.8); BILIRUBIN,TOTAL 1.2 mg/dL (0.2-1.2); C-REACTIVE PROTEIN 4.29 mg/dL (0.00-0.50); CALCIUM 9.2 mg/dL (8.4-10.2); CREATININE, serum 2.09 mg/dL (0.72-1.25); POTASSIUM 4.3 mmol/L (3.5-4.5); TOTAL PROTEIN 7.2 gm/dL (6.2-8.1)
[2022-12-20] MEDS ORDERED: XARELTO15 MG PO (18:00)
[2022-12-20 18:31] VITALS: BP 143/66; PULSE 85
== END 2022-12-20 18:45 | disposition home or self-care (01) ==
LOC: COL.ER 15:49
PROVIDERS: Emergency Medicine
DX: I82.401 Acute embolism and thrombosis of unspecified deep veins of right lower extremity (principal); I26.99 Other pulmonary embolism without acute cor pulmonale; L97.909 Non-pressure chronic ulcer of unspecified part of unspecified lower leg with unspecified severity; R79.82 Elevated C-reactive protein (CRP); Z86.16 Personal history of COVID-19; Z95.828 Presence of other vascular implants and grafts; Z28.310 Unvaccinated for COVID-19
CPT/HCPCS: J1650

== ENCOUNTER 2022-12-26 12:12 | Inpatient (IN) | payer MEDICARE, MEDICAID ==
[2022-12-26] VITALS (8 sets, daily range): BP systolic 90–127; BP diastolic 38–52; PULSE 83–94; TEMP 97.4–97.7
[~2022-12-26] VITALS: Ht 167.6 cm; Wt 129.5 kg
[~2022-12-26 12:12] MED LIST changes: +XARELTO15 MG PO
[2022-12-26 12:59] LABS: COLLECTION METHOD CLEAN CATCH
[2022-12-26 13:03] LABS: BASO % 0.3 % (0.0-2.0); EOS # 0.1 K/mm3 (0.0-0.7); EOS % 0.9 % (0.0-4.0); GRAN # 4.2 K/mm3 (1.4-6.5); GRAN % 64.8 % (42.2-75.2); LYMPH # 1.5 K/mm3 (1.2-3.4); LYMPH % 23.7 % (20.0-51.0); MEAN CELL VOLUME 97 fl (80.0-100.0); MEAN CORPUSCULAR HGB CONC 31 g/dl (33.0-37.0); MEAN PLATELET VOLUME 11.8 fl (7.4-10.4); MONO # 0.6 K/mm3 (0.1-0.6); MONO % 9.5 % (1.7-9.3); PLATELET COUNT 117 K/mm3 (130-400); RED BLOOD COUNT 2.32 M/mm3 (4.20-5.60); REDCELL DISTRIBUTION WIDTH-CV 15.7 % (11.5-14.5)
[2022-12-26 13:06] LABS: ALBUMIN 2.4 gm/dL (3.4-4.8); BILIRUBIN,TOTAL 0.8 mg/dL (0.2-1.2); C-REACTIVE PROTEIN 2.39 mg/dL (0.00-0.50); CALCIUM 8.8 mg/dL (8.4-10.2); CREATININE, serum 1.94 mg/dL (0.72-1.25); POTASSIUM 4.6 mmol/L (3.5-4.5); TOTAL PROTEIN 6.4 gm/dL (6.2-8.1)
[2022-12-26 13:07] LABS: SQUAMOUS EPITHELIAL 0-2 /hpf (0-10); URINE BACTERIA None Seen /hpf (NONE SEEN); URINE RBC None Seen /hpf (0-2)
[2022-12-26 13:08] LABS: HEMATOCRIT 22.6 % (42.0-52.0); HEMOGLOBIN 6.9 g/dl (13.5-18.0); MEAN CORPUSCULAR HEMOGLOBIN 30 pg (27-31)
[2022-12-26 13:14] LABS: URINE APPEARANCE Clear (CLEAR/HAZY); URINE BLOOD Negative (NEGATIVE); URINE COLOR Yellow (YELLOW); URINE GLUCOSE Negative (NEGATIVE); URINE KETONE Negative (NEGATIVE); URINE NITRATE Negative (NEGATIVE); URINE PROTEIN(semi-quant) Negative (NEGATIVE); URINE UROBILINOGEN 0.2 E.U/dL (0.2-1.0)
[2022-12-26] MEDS ORDERED: NITROSTAT0.4 MG/TAB SL (14:29)
[2022-12-26] MEDS ORDERED: PEPTO BISM262 MG/15 PO (14:32)
[2022-12-26] MEDS ORDERED: TUMS500 MG (14:35)
[2022-12-26] MEDS ORDERED: TYLENOL 500MG500 MG PO (14:36)
[2022-12-26] MEDS ORDERED: DULCOLAX TAB5 MG PO (14:37)
[2022-12-26] MEDS ORDERED: NEURONTIN300 MG/CAP PO (17:04)
--- NOTE | 2022-12-26 18:13 | NUR ---
PATIENT ALERT AND ORIENTED, FLAT AFFECT. APPEARS TO HAVE SOME SLIGHT COGNITIVE DEFICITS. PATIENT REPORTS PAIN IN RLE, RATING IT 3/10. DENIES NEED FOR PAIN MEDICATION. WOUND TO RIGHT LOWER EXTREMITY, OOZING, LEAKING ON ARRIVAL. DRESSING CHANGED WITH NON-STICK, ABD, KERLIX AND TAPE. LEFT LOWER EXTREMITY, SWOLLEN, RED, PAINFUL. BLE VENOUS STASIS APPEARANCE. PATIENT TO RECEIVE ONE UNIT OF BLOOD. MED RX COMPLETE USING FAXED PAPERWORK FROM [facility]. IV TO LEFT AC WITH NS RUNNING AT 100ML/HOUR. PATIENT ON CLEAR LIQUID DIET TOLERATING. PATIENT DENIES ANY COFFEE-GROUND LIKE EMESIS OR DARK STOOLS RECENTLY. STOOL OCCULT TO BE OBTAINED. PATIENT RESTING IN BED, CALL LIGHT IN REACH.
--- NOTE | 2022-12-26 20:30 | NUR ---
Initial shift assessment done- pt is alert/oriented, denies pain at this time,no SOB, Tele on, IV fluids of NS at 100cc/hr, attempts to use the urinalbut is incontinent at times. Dressing to right lower leg dry and intact. No stool/emesis .
[2022-12-26 21:20] LABS: RETIC # 0.1 M/mm3 (0.02-0.16); RETIC % 4.3 % (0.5-3.52)
[2022-12-26 21:21] LABS: HEMATOCRIT 21.9 % (42.0-52.0)
[2022-12-26 21:26] LABS: INR 2.8 (0.8-3.0); PROTHROMBIN TIME 32.6 SECONDS (9.7-12.8)
[2022-12-27] VITALS (11 sets, daily range): BP systolic 104–145; BP diastolic 40–53; PULSE 82–122; TEMP 97.3–98.4
--- NOTE | 2022-12-27 05:36 | NUR ---
Overall a quiet night-- was changed for some incontinence during the night- no emesis/stools, VSS, O2 sats 93% on room air, most recent hgb 7.0, lab here to draw his morning labs now.
--- NOTE | 2022-12-27 06:45 | NUR ---
PATIENT ASLEEP, RESTIING IN BED. CALL LIGHT WITHIN REACH. BED ALARM ON.
--- NOTE | 2022-12-27 08:21 | NUR ---
CALL RECIEVED FROM US REGARDING PATIENT NPO STATUS, THEY STATED ORDERS WERE JUST PLACED FOR ABD US AND PATIENT NEEDS TO BE NPO. INFORMED THEM PATIENT HAS NOT HAD BREAKFAST YET THIS AM, BUT RN WILL CHANGE HIM TO NPO STATUS UNTIL IMAGING COMPLETE.
--- NOTE | 2022-12-27 10:08 | NUR ---
[facility] CALLED TO ASSIST WITH LAB DRAW. LAB UNABLE TO GET BLOOD AFTER MULTIOLE ATTEMPTS, AM LABS AND H&H CHECK STILL NEEDED. AWARE.
[2022-12-27 10:44] LABS: BASO % 0.7 % (0.0-2.0); EOS # 0.2 K/mm3 (0.0-0.7); EOS % 3.3 % (0.0-4.0); GRAN # 3.1 K/mm3 (1.4-6.5); GRAN % 52.5 % (42.2-75.2); LYMPH # 1.9 K/mm3 (1.2-3.4); LYMPH % 32.4 % (20.0-51.0); MEAN CELL VOLUME 94 fl (80.0-100.0); MEAN CORPUSCULAR HGB CONC 32 g/dl (33.0-37.0); MEAN PLATELET VOLUME 11.8 fl (7.4-10.4); MONO # 0.6 K/mm3 (0.1-0.6); MONO % 10.4 % (1.7-9.3); PLATELET COUNT 101 K/mm3 (130-400); RED BLOOD COUNT 2.46 M/mm3 (4.20-5.60); REDCELL DISTRIBUTION WIDTH-CV 16.9 % (11.5-14.5)
[2022-12-27 10:46] LABS: HEMATOCRIT 23.1 % (42.0-52.0); HEMOGLOBIN 7.4 g/dl (13.5-18.0); MEAN CORPUSCULAR HEMOGLOBIN 30 pg (27-31)
[2022-12-27 11:01] LABS: ALBUMIN 2.4 gm/dL (3.4-4.8); CALCIUM 8.8 mg/dL (8.4-10.2); CREATININE, serum 1.96 mg/dL (0.72-1.25); MAGNESIUM 2.3 mg/dL (1.6-2.6); PHOSPHOROUS 4.6 mg/dL (2.3-4.7); POTASSIUM 4.6 mmol/L (3.5-4.5)
--- NOTE | 2022-12-27 12:00 | NUR ---
DRESSING CHANGED TO PATIENTS RLE, PER PATIENT HE HAS HAD THIS WOUND FOR ALMOST 2 YEARS AND DOES NOT FOLLOW WITH ANY WOUND CLINIC,. PATIENT REPORTS HIS NURSE AT [facility] CHANGES HIS DRESSING DAILY.
--- NOTE | 2022-12-27 12:35 | NUR ---
VOICEMAIL LEFT FOR VIBHA MARQUEZ OFFICE. CALL BACK NUMBER LEFT.
--- NOTE | 2022-12-27 14:33 | NUR ---
SPOKE WITH PHARMACY, PER DR BOLA SEGURA PROG NOTE PATIENT TO HAVE EGD/COLON SUNDAY THE . PHARMACY TO RESCHEDULE BOWEL PREP FOR 12/28 AT 1730
--- NOTE | 2022-12-27 15:31 | NUR ---
PATIENT RESTING IN BED. REPOSITIONED Q2H, PATIENT CURRENTLY LEANED TOWARDS RIGHT SIDE. PATIENT DENIES ANY NEEDS OR COMPLAINTS AT THIS TIME, DENIES ANY PAIN. CALL LIGHT WITHIN REACH,, BED ALARM ON.
[2022-12-27 16:33] LABS: GASTROCCULT POSITIVE
[2022-12-27 16:34] LABS: HEMATOCRIT 23.6 % (42.0-52.0); HEMOGLOBIN 7.5 g/dl (13.5-18.0)
--- NOTE | 2022-12-27 20:30 | NUR ---
Initial shift assessment done- drowsy , but states cant sleep- states having back pain lower,, repositioned in bed- will continue to assess, tele on-ST , wound to right leg with dressing on.
--- NOTE | 2022-12-27 22:00 | NUR ---
Called Milly gomes pts complaint of lower back pain, also pt remains tachy 120,s,, B/P stable- did get order for Ultram po for pain
[2022-12-27 23:39] LABS: HEMATOCRIT 22.4 % (42.0-52.0); HEMOGLOBIN 7.3 g/dl (13.5-18.0)
[2022-12-28] VITALS (10 sets, daily range): BP systolic 125–145; BP diastolic 47–59; PULSE 72–98; TEMP 96.3–97.4
--- NOTE | 2022-12-28 00:05 | NUR ---
Continues to complain of lower back pain- remains tachy on Tele 130/min, Milly called- she is up on floor - did go talk with patient, does not want to give IV fluids, did give order for Morphine IV for pain- pt has been repositioned numerous/numerous times. Milly GONZALEZ was aware of HGB of 7.3.
--- NOTE | 2022-12-28 05:24 | NUR ---
Has been sleeping after the second dose of Morphine IV was given- also was given some Tylenol po for the back pain of 05/22. Heart rate down to the 80,s
[2022-12-28 06:15] LABS: BASO % 0.4 % (0.0-2.0); EOS # 0.1 K/mm3 (0.0-0.7); EOS % 0.7 % (0.0-4.0); GRAN # 4.7 K/mm3 (1.4-6.5); GRAN % 66.8 % (42.2-75.2); LYMPH # 1.6 K/mm3 (1.2-3.4); LYMPH % 22.3 % (20.0-51.0); MEAN CELL VOLUME 95 fl (80.0-100.0); MEAN CORPUSCULAR HGB CONC 31 g/dl (33.0-37.0); MEAN PLATELET VOLUME 11.8 fl (7.4-10.4); MONO # 0.6 K/mm3 (0.1-0.6); MONO % 9.2 % (1.7-9.3); PLATELET COUNT 101 K/mm3 (130-400); RED BLOOD COUNT 2.53 M/mm3 (4.20-5.60); REDCELL DISTRIBUTION WIDTH-CV 17.1 % (11.5-14.5)
[2022-12-28 06:18] LABS: HEMATOCRIT 24.1 % (42.0-52.0); HEMOGLOBIN 7.4 g/dl (13.5-18.0); MEAN CORPUSCULAR HEMOGLOBIN 29 pg (27-31)
[2022-12-28 06:27] LABS: INR 1.5 (0.8-3.0); PROTHROMBIN TIME 17.2 SECONDS (9.7-12.8)
[2022-12-28 06:37] LABS: ALBUMIN 2.3 gm/dL (3.4-4.8); CALCIUM 8.6 mg/dL (8.4-10.2); CREATININE, serum 2.11 mg/dL (0.72-1.25); MAGNESIUM 2.4 mg/dL (1.6-2.6); PHOSPHOROUS 4.4 mg/dL (2.3-4.7); POTASSIUM 4.3 mmol/L (3.5-4.5)
--- NOTE | 2022-12-28 09:49 | NUR ---
UPON ENTERING ROOM, PATIENT NOTED TO BE ATTEMPTING TO TALK TO THIS RN, HOWEVER, HIS SPEECH WAS VERY SLURRED. PATIENT ABLE TO ANSWER QUESTIONS, BUT IS DIFFICULT TO UNDERSTAND. PUPILS EQUAL, ROUND, AND REACTIVE. HAND EARLY CHILDHOOD COORDINATOR EQUAL. PATIENT IS ALERT AND PARTIALLY ORIENTED, KNOWS HIS NAME, , AND THAT HE IS IN THE HOSPITAL. DR. CAREY NOTIFIED AND REQUESTED TO ASSESS PATIENT. NEW ORDERS NOTED FOR CT AND MRI. CT AND MRI BOTH NOTIFIED.
--- NOTE | 2022-12-28 09:49 | NUR ---
Qa Manager attemted to contact Bebeto, Patient's brother to conduct Care Managment Assessment as Patient is reported to be confused with altered speech. SW left a voicemail requesting call back.
[2022-12-28 12:15] LABS: HEMATOCRIT 23.6 % (42.0-52.0); HEMOGLOBIN 7.6 g/dl (13.5-18.0)
--- NOTE | 2022-12-28 12:18 | NUR ---
PATIENT BACK FROM CT, XRAY, AND MRI. TELE BOX NOT WITH PATIENT, MRI UPDATED WHO IS LOOKING FOR BOX AND WILL UPDATE THIS RN. FLUIDS INITATED PER ORDER. PATIENT HAVING DIFFICULTY WITH PO INTAKE AND MEDS, KATRIN MACKENZIE UPDATED AND NEW ORDER FOR ST PLACED.
--- NOTE | 2022-12-28 14:15 | NUR ---
patient in bed working with therapy. still minimally responsive to questions, speech is still slurred. patient states he is feeling a little better. patient failed ST swallowing eval, Dr. Tobias updated as patient is to start bowel prep this evening. procedure for tomorrow on hold for now. daiana morris contacted but no answer- vm left.
--- NOTE | 2022-12-28 14:16 | NUR ---
DR QUINTANILLA CALLED REGARDING THE PATIENTS NPO STATUS AND LOC CHANGE. THE PATIENT IS UNABLE TO TAKE BOWEL PREP NOR CONSENT FOR THE PROCEDURE, DPOA HAS BEEN CALLED 2 TIMES, VM LEFT WITH NO RESPONSE.
--- NOTE | 2022-12-28 17:46 | NUR ---
HEPARIN GTT CLARIFIED WITH DR CAREY. PER DR. CAREY, PATIENT LIKELY DOES NOT HAVE ACTIVE BLEED AND NEEDS TO BE ANTICOAGULATED. PER DR. CAREY, WE WILL CONTINUE TO MONITOR FOR ACTIVE BLEEDING AND MONITOR HGB. QUARTER INSPECTOR AND CHARGE UPDATED, QUARTER INSPECTOR TO ATTEMPT NEW IV PLACEMENT.
[2022-12-28 17:55] LABS: PARTIAL THROMBOPLASTIN TIME 30.6 SECONDS (26.0-37.0)
--- NOTE | 2022-12-28 18:22 | NUR ---
TOOL MAINTENANCE WORKER UNABLE TO GET NEW IV PLACEMENT. PATIENT CURRENTLY HAS FLUIDS AND ZOSYN RUNNING INTO IV IN RIGHT AC. DORIS, MEDICAL CLAIMS PROCESSOR UPDATED- PER DORIS RN TO FINISH CURRENT ZOSYN, AND THEN START HEPARIN GTT TO CURRENT IV. WILL UPDATE HS RN.
--- NOTE | 2022-12-28 19:34 | NUR ---
1900 PT SHIFT ASSESSMENT DONE PT ALERT WITH EYES OPEN UNABLE TO CONVERSATE BESIDES ONE WORD ANSWERS. HAND WHARF HAND WEAK CANNOT FULLY SWATCHER AROUND FINGERS. PT RESTING IN BED, IN LOWEST POSITION, CALL LIGHT PLACED ON CHEST. STRIPPER OPAQUER ABLE TO INSERT IV IN RT WRIST.
[2022-12-29] VITALS (18 sets, daily range): BP systolic 105–135; BP diastolic 39–86; PULSE 73–93; TEMP 97.1–98.4
[2022-12-29 00:46] LABS: HEMATOCRIT 23.2 % (42.0-52.0); HEMOGLOBIN 7.1 g/dl (13.5-18.0)
[2022-12-29 06:52] LABS: BASO % 0.4 % (0.0-2.0); EOS # 0.2 K/mm3 (0.0-0.7); EOS % 3.2 % (0.0-4.0); GRAN # 2.7 K/mm3 (1.4-6.5); GRAN % 52.6 % (42.2-75.2); LYMPH # 1.7 K/mm3 (1.2-3.4); LYMPH % 32.9 % (20.0-51.0); MEAN CELL VOLUME 97 fl (80.0-100.0); MEAN CORPUSCULAR HGB CONC 30 g/dl (33.0-37.0); MEAN PLATELET VOLUME 11.2 fl (7.4-10.4); MONO # 0.5 K/mm3 (0.1-0.6); MONO % 10.5 % (1.7-9.3); PLATELET COUNT 118 K/mm3 (130-400); RED BLOOD COUNT 2.31 M/mm3 (4.20-5.60); REDCELL DISTRIBUTION WIDTH-CV 17.8 % (11.5-14.5)
[2022-12-29 06:57] LABS: HEMATOCRIT 22.4 % (42.0-52.0); HEMOGLOBIN 6.8 g/dl (13.5-18.0); MEAN CORPUSCULAR HEMOGLOBIN 29 pg (27-31)
[2022-12-29 07:00] LABS: INR 1.5 (0.8-3.0); PROTHROMBIN TIME 17.1 SECONDS (9.7-12.8)
[2022-12-29 07:12] LABS: ALBUMIN 2.3 gm/dL (3.4-4.8); CALCIUM 8.5 mg/dL (8.4-10.2); CREATININE, serum 2.12 mg/dL (0.72-1.25); MAGNESIUM 2.5 mg/dL (1.6-2.6); PHOSPHOROUS 4.3 mg/dL (2.3-4.7); POTASSIUM 4.2 mmol/L (3.5-4.5)
--- NOTE | 2022-12-29 09:00 | NUR ---
PT IN BED WITH EYES OPEN BUT SNORING UPON ENTERING, RISE AND FALL OF CHEST NOTED. ASSESSMENT DONE SEE INTERVENTIONS. PT IS MORE ALERT AND RESPONSIVE THIS AM, SPEECH IS MORE DISCERNABLE. PT IS NPO BUT REQUESTING FLUIDS AND EDUCATED ON NPO STATUS. PT HAS A STAGE 3 ULCER ON THE BACK ON THE RIGHT CALF, DRESSING INTACT AT THIS MOMENT. PT REPORTS NO PAIN AT THIS TIME. CALL LIGHT IN REACH, BED IN LOWEST POSITION, BED ALARM ON.
--- NOTE | 2022-12-29 09:15 | NUR ---
Sas Programmer was notified that Patient's family ocntacted nursing staff this morning and provided a contact phone number. SW called and spoke with Patient's [id number]. SW briefed her on the need for family involvment and decision making by [facility] due to Patient's status. She reports that her , Bebeto (DPOA-HC) will be on site today no later than noon.
--- NOTE | 2022-12-29 10:47 | NUR ---
PALLIATIVE CONSULT PENDING- FAMILY PRESENT AND AWAITING CARE TEAM MEETING- PER DR. BARRON, OKAY TO HOLD OFF ON BLOOD TRANSFUSION UNTIL AFTER PALLIATIVE CONSULT.
--- NOTE | 2022-12-29 12:59 | NUR ---
11:30am. and myself met pt's brother Bebeto and Ju to discuss Medical condition/Palliative consult. discussed AMS changes, GI Bleed, DVT's in legs, inability to eat/drink safely, Liver Cirrhosis, Anemia, Kidney function, Poor Prognosis. He answered all questions. Bebeto is the DPOA and stated pt is a DNR. Decision was made to agressively treat over the weekend and on Sunday have a conversation regarding need for Hospice Care. Pt will recieve blood today/NGT for med administration.
--- NOTE | 2022-12-29 13:20 | NUR ---
WHEN STARTING BLOOD TRANSFUSION, PATIENT NOTED TO BE MORE ALERT AND ASKING FOR WATER. DR. BARRON UPDATED- STATES RN SHOULD COMPLETE BEDSIDE SWALLOW SCREEN PRIOR TO PLACING NG TUBE, AND IF PATIENT IS ABLE TO TOLERATE PO, GIVE LACTULOSE PO AND HOLD OFF ON NG TUBE FOR NOW. PATIENT PASSED BEDSIDE SWALLOW SCREEN AND TOLERATED PO LACTULOSE WELL WITH NO SIGNS OF ASPIRATION. ST UPDATED WHO WILL COME SEE THE PATIENT SOON. PATIENT DENIES FURTHER NEEDS, TOLERATING BLOOD TRANSFUSION WELL.
--- NOTE | 2022-12-29 13:33 | NUR ---
Fudger met with Family after NCM and Physician discussed care options with family. Family reports to intend on continuing agressive care until a reassessment 12-31-22 when they will reevaluate their decisions on care.
[2022-12-29 19:56] LABS: HEMATOCRIT 26.5 % (42.0-52.0)
[2022-12-30] VITALS (9 sets, daily range): BP systolic 105–140; BP diastolic 49–62; PULSE 74–95; TEMP 97.9–98.5
--- NOTE | 2022-12-30 00:49 | NUR ---
Shift assessment performed- see documentation. Pt is alert and oriented to person and place. He obeys verbal commands and responds appropriately, though it is clear that there is still confusion present. His HGB recheck was 8.0 after receiving 1 unit of blood today. Family called and was updated concerning his status. He is being turned and repositioned q2h. Bed is in lowest position and call light within reach.
[2022-12-30 07:12] LABS: BASO % 0.5 % (0.0-2.0); EOS # 0.1 K/mm3 (0.0-0.7); EOS % 3.4 % (0.0-4.0); GRAN # 2.1 K/mm3 (1.4-6.5); GRAN % 51.3 % (42.2-75.2); HEMATOCRIT 23.8 % (42.0-52.0); HEMOGLOBIN 7.3 g/dl (13.5-18.0); LYMPH # 1.3 K/mm3 (1.2-3.4); LYMPH % 31.5 % (20.0-51.0); MEAN CELL VOLUME 96 fl (80.0-100.0); MEAN CORPUSCULAR HEMOGLOBIN 30 pg (27-31); MEAN CORPUSCULAR HGB CONC 31 g/dl (33.0-37.0); MEAN PLATELET VOLUME 11.2 fl (7.4-10.4); MONO # 0.5 K/mm3 (0.1-0.6); MONO % 12.8 % (1.7-9.3); PLATELET COUNT 107 K/mm3 (130-400); RED BLOOD COUNT 2.47 M/mm3 (4.20-5.60); REDCELL DISTRIBUTION WIDTH-CV 17.6 % (11.5-14.5)
[2022-12-30 07:27] LABS: INR 1.2 (0.8-3.0); PROTHROMBIN TIME 13.8 SECONDS (9.7-12.8)
[2022-12-30 07:32] LABS: ALBUMIN 2.4 gm/dL (3.4-4.8); BILIRUBIN,TOTAL 1.6 mg/dL (0.2-1.2); CALCIUM 8.6 mg/dL (8.4-10.2); CREATININE, serum 1.97 mg/dL (0.72-1.25); MAGNESIUM 2.5 mg/dL (1.6-2.6); POTASSIUM 3.8 mmol/L (3.5-4.5); TOTAL PROTEIN 5.9 gm/dL (6.2-8.1)
--- NOTE | 2022-12-30 17:00 | NUR ---
PATIENT AWAKE AND ALERT, RESTING IN BED. PATIENT DENIES ANY NEEDS OR COMPLAINTS AT THIS TIME. PATIENT SITTING UP IN BED FOR DINNER, ABLE TO FEED SELF. CALL LIGHT WITHIN REACH. BED ALARM ON.
[2022-12-31] VITALS (9 sets, daily range): BP systolic 100–164; BP diastolic 43–62; PULSE 81–94; TEMP 98–99.1
--- NOTE | 2022-12-31 01:10 | NUR ---
Shift assessment performed- see documentation. Pt is alert. He is conversationally appropriate. Neuro check are wnl. He received a bed bath tonight. Fluids are running without complications. Right calf wound is covered in a xeroform and gauze dressing. It is CDI. He denies pain. Bed in lowest position and call light within reach.
[2022-12-31 07:40] LABS: BASO % 0.6 % (0.0-2.0); EOS # 0.1 K/mm3 (0.0-0.7); EOS % 3.6 % (0.0-4.0); GRAN # 1.5 K/mm3 (1.4-6.5); GRAN % 44.7 % (42.2-75.2); LYMPH # 1.2 K/mm3 (1.2-3.4); LYMPH % 37.2 % (20.0-51.0); MEAN CELL VOLUME 95 fl (80.0-100.0); MEAN CORPUSCULAR HGB CONC 31 g/dl (33.0-37.0); MEAN PLATELET VOLUME 11.2 fl (7.4-10.4); MONO # 0.5 K/mm3 (0.1-0.6); MONO % 13.6 % (1.7-9.3); PLATELET COUNT 76 K/mm3 (130-400); RED BLOOD COUNT 2.51 M/mm3 (4.20-5.60); REDCELL DISTRIBUTION WIDTH-CV 16.8 % (11.5-14.5)
[2022-12-31 07:50] LABS: HEMATOCRIT 23.9 % (42.0-52.0); HEMOGLOBIN 7.5 g/dl (13.5-18.0); MEAN CORPUSCULAR HEMOGLOBIN 30 pg (27-31)
[2022-12-31 07:56] LABS: ALBUMIN 2.4 gm/dL (3.4-4.8); BILIRUBIN,TOTAL 1.7 mg/dL (0.2-1.2); CALCIUM 8.2 mg/dL (8.4-10.2); CREATININE, serum 1.64 mg/dL (0.72-1.25); POTASSIUM 3.7 mmol/L (3.5-4.5); TOTAL PROTEIN 5.7 gm/dL (6.2-8.1)
--- NOTE | 2022-12-31 08:00 | NUR ---
PATIENT AWAKE AND ALERT, RESTING IN BED. PATIENT DENIES ANY NEEDS OR COMPLAINTS AT THIS TIME. CALL LIGHT WITHIN REACH.
--- NOTE | 2022-12-31 11:52 | NUR ---
CONSENT FOR PROCEDURE ON CHART
--- NOTE | 2022-12-31 17:00 | NUR ---
PATIETN AWAKE AND ALERT, RESTING IN BED. PATIENT TURNED Q2H. PATIENT DENIES ANY NEEDS OR COMPLAINTS AT THIS TIME. CALL LIGHT WITHIN REACH.
--- NOTE | 2022-12-31 22:19 | NUR ---
PT HAVING ABD PAIN AND NAUSEA 2099 ZOFRAN WAS GIVEN AT 2128 TYLENOL WAS GIVEN, PT RATING PAIN AT A 3. PT CONTINED TO CALL STATING STILL HAVING ABDOMINAL PAIN CALLED DORIS MOISE, ORDERS RECIEVED.
--- NOTE | 2022-12-31 22:25 | NUR ---
PT HAD CALLED MULTIPLE TIMES REGARDING PAIN UPON CHECKING PT RATING PAIN AT 3, RECIEVED ONE TIME DOSE OF 1MG MORPHINE 2226 MORPHINE WAS GIVEN.
--- NOTE | 2022-12-31 23:00 | NUR ---
2255 PT FOUND TO BE SLEEPING WITH UNLABORED AND EQUAL CHEST RISE BREATHING. TAPPED PT ON SHOULDER EASILY AROUSED, ABD PAIN RATED AT A 3 UNCHANGED.
[2023-01-01] VITALS (21 sets, daily range): BP systolic 122–166; BP diastolic 45–83; PULSE 79–96; TEMP 97.4–98.7
[2023-01-01 07:39] LABS: BASO % 0.8 % (0.0-2.0); EOS # 0.1 K/mm3 (0.0-0.7); EOS % 1.6 % (0.0-4.0); GRAN # 2.4 K/mm3 (1.4-6.5); GRAN % 62.9 % (42.2-75.2); LYMPH # 0.8 K/mm3 (1.2-3.4); LYMPH % 22.4 % (20.0-51.0); MEAN CELL VOLUME 96 fl (80.0-100.0); MEAN CORPUSCULAR HGB CONC 31 g/dl (33.0-37.0); MEAN PLATELET VOLUME 11.4 fl (7.4-10.4); MONO # 0.5 K/mm3 (0.1-0.6); PLATELET COUNT 82 K/mm3 (130-400); REDCELL DISTRIBUTION WIDTH-CV 16.2 % (11.5-14.5)
--- NOTE | 2023-01-01 07:43 | NUR ---
SHIFT ASSESSMENT COMPLETED AND MORNING MEDICATIONS ADMINISTERED PER ORDER. PATIENT IS ALERT AND ORIENTED X4. C/O PAIN 3/10 TO HIS STOMACH. NPO FOR EGD THIS AFTERNOON. DRESSING IN PLACE TO RIGHT LOWER EXTREMITY. DENIES NEEDS. CALL LIGHT WITHIN REACH.
[2023-01-01 07:51] LABS: HEMATOCRIT 24.9 % (42.0-52.0); HEMOGLOBIN 7.7 g/dl (13.5-18.0); MEAN CORPUSCULAR HEMOGLOBIN 30 pg (27-31)
[2023-01-01 07:55] LABS: CALCIUM 8.7 mg/dL (8.4-10.2); CREATININE, serum 1.59 mg/dL (0.72-1.25); MAGNESIUM 2.5 mg/dL (1.6-2.6); POTASSIUM 4.2 mmol/L (3.5-4.5)
--- NOTE | 2023-01-01 14:33 | NUR ---
PATIENT RETURNED FROM EGD AT APPROX 1430 ACCOMPANIED BY ENDO RN. PATIENT IS DROWSY BUT AROUSABLE. VITAL SIGNS OBTAINED AND STABLE FOR PATIENT. CALL LIGHT IN REACH, DENIES NEEDS.
--- NOTE | 2023-01-01 16:34 | NUR ---
Garnett Fixer collaborated with [facility] Milly to coordinate for Patient dischcarge to [facility]. Milly reports that she can accept Patient immediatly. PAM recieved report from medical staff that Patient is to have a procedure done this afternoon and will need ~2 hours post-op time. PAM coordinated with Susana to discharge to [facility] tomorrow.
--- NOTE | 2023-01-01 18:41 | NUR ---
PATIENT IN BED AT THIS TIME. STATES HE IS HAVING SOME STOMACH DISCOMFORT, PRN PAIN MEDICATION OFFERED, BUT PATIENT DECLINED. PREVIOUS DIET REENSTATED, PATIENT STATES HE DOES NOT WANT ANY DINNER TONIGHT. DENIES FURTHER NEEDS. CALL LIGHT WITHIN REACH.
--- NOTE | 2023-01-01 18:43 | NUR ---
DRESSING CHANGED BY IVA MURRY
[2023-01-01] MEDS ORDERED: PROTONIX 40MG T40 MG PO (20:48)
[2023-01-01] MEDS ORDERED: LACTULOSE10 GM/153 PO (21:00)
[2023-01-01 21:32] LABS: HEMOGLOBIN 7.9 g/dl (13.5-18.0)
[2023-01-02 01:28] VITALS: BP_SYST 135
[2023-01-02 03:22] VITALS: BP 125/56; PULSE 92; TEMP 98.7
[2023-01-02 04:39] VITALS: BP_SYST 125
[2023-01-02 07:42] VITALS: BP 142/54; PULSE 85; TEMP 98.4
[2023-01-02 09:00] VITALS: BP_SYST 142
[2023-01-02 09:33] LABS: HEMATOCRIT 25.1 % (42.0-52.0); HEMOGLOBIN 7.9 g/dl (13.5-18.0)
--- NOTE | 2023-01-02 10:49 | NUR ---
PATIENT DISCHARGING TO [facility] TODAY, NO AM LABS ORDERED THIS MORNING- UNABLE TO COMPLETE POTASSIUM PROTOCOL- DR. CAREY AWARE, NO NEW ORDERS PLACED.
[2023-01-02] MEDS ORDERED: NOVOLOG 100U100 U/M1 SQ (10:52)
[2023-01-02] MEDS ORDERED: CIPRO 500MG TA500 MG PO (10:52)
[2023-01-02 11:26] VITALS: BP 142/54; PULSE 85; TEMP 98.4
--- NOTE | 2023-01-02 12:18 | NUR ---
PATIENT DISCHARGED PER ORDER. IV TO RIGHT AC REMOVED WITH CATHETER INTACT, MINIMAL BLEEDING NOTED, GAUZE DRESSING APPLIED. DRESSING TO RIGHT CALF CHANGED, PATIENT TOLERATED WELL. DISCHARGE PACKET SENT WITH PATIENT. REPORT GIVEN TO NKECHI NURSE AT [facility] WHO DENIES FURTHER NEEDS. TELE REMOVED. PATIENT ESCORTED OUT BY [facility] STAFF.
== END 2023-01-02 12:24 | DRG 811 ==
LOC: COL.ER 12:12 → MEDICAL 13:19
PROVIDERS: Family Medicine; Internal Medicine; Internal Medicine Gastroenterology; Physician Assistant; ADMIT Internal Medicine
PROC: 0DJ08ZZ Inspection of Upper Intestinal Tract, Via Natural or Artificial Opening Endoscopic (ICD-10-PCS; principal; 2022-12-26)
DX: D62 Acute posthemorrhagic anemia (principal); G93.41 Metabolic encephalopathy; I82.403 Acute embolism and thrombosis of unspecified deep veins of lower extremity, bilateral; Z68.41 Body mass index [BMI] 40.0-44.9, adult; E87.0 Hyperosmolality and hypernatremia; K76.82 Hepatic encephalopathy; Z66 Do not resuscitate; Z86.711 Personal history of pulmonary embolism; N18.30 Chronic kidney disease, stage 3 unspecified; I27.81 Cor pulmonale (chronic); I12.9 Hypertensive chronic kidney disease with stage 1 through stage 4 chronic kidney disease, or unspecified chronic kidney disease; E11.22 Type 2 diabetes mellitus with diabetic chronic kidney disease; Z79.4 Long term (current) use of insulin; E78.5 Hyperlipidemia, unspecified; I89.0 Lymphedema, not elsewhere classified; E66.01 Morbid (severe) obesity due to excess calories; F20.9 Schizophrenia, unspecified; D69.59 Other secondary thrombocytopenia; D61.818 Other pancytopenia; R53.81 Other malaise; Z79.82 Long term (current) use of aspirin; Z79.01 Long term (current) use of anticoagulants; Z88.8 Allergy status to other drugs, medicaments and biological substances; T45.515A Adverse effect of anticoagulants, initial encounter; Z87.891 Personal history of nicotine dependence
CPT/HCPCS: C9113; J1644; J1756; J1815; J2270; J2405; J2543; J2550; J2704; J7030; J7040; J7120; P9016

== ENCOUNTER → 2023-06-11 | Outpatient (REF) | payer MEDICARE, MEDICAID ==
[~2023-06-11] MED LIST changes: +CIPRO 500MG TA500 MG PO; +DULCOLAX TAB5 MG PO; +LACTULOSE10 GM/153 PO; +NEURONTIN300 MG/CAP PO; +NITROSTAT0.4 MG/TAB SL; +NOVOLOG 100U100 U/M1 SQ; +PEPTO BISM262 MG/15 PO; +PROTONIX 40MG T40 MG PO; +TUMS500 MG; +TYLENOL 500MG500 MG PO
[2023-06-11 15:58] LABS: BASO % 0.6 % (0.0-2.0); EOS # 0.1 K/mm3 (0.0-0.7); EOS % 1.8 % (0.0-4.0); GRAN # 3.1 K/mm3 (1.4-6.5); GRAN % 59.5 % (42.2-75.2); LYMPH # 0.9 K/mm3 (1.2-3.4); LYMPH % 18.3 % (20.0-51.0); MEAN CELL VOLUME 76 fl (80.0-100.0); MEAN CORPUSCULAR HGB CONC 30 g/dl (33.0-37.0); MONO % 19.6 % (1.7-9.3); PLATELET COUNT 98 K/mm3 (130-400); RED BLOOD COUNT 3.54 M/mm3 (4.20-5.60); REDCELL DISTRIBUTION WIDTH-CV 23.2 % (11.5-14.5)
[2023-06-11 16:14] LABS: HEMOGLOBIN 8.2 g/dl (13.5-18.0); MEAN CORPUSCULAR HEMOGLOBIN 23 pg (27-31)
[2023-06-11 16:17] LABS: ALBUMIN 2.9 gm/dL (3.4-4.8); BILIRUBIN,TOTAL 1.9 mg/dL (0.2-1.2); CALCIUM 8.6 mg/dL (8.4-10.2); CREATININE, serum 1.83 mg/dL (0.72-1.25); TOTAL PROTEIN 6.6 gm/dL (6.2-8.1)
== END ==
LOC: ZCOL.LAB 15:32
PROVIDERS: Internal Medicine
DX: I12.9 Hypertensive chronic kidney disease with stage 1 through stage 4 chronic kidney disease, or unspecified chronic kidney disease (principal); N18.9 Chronic kidney disease, unspecified

== ENCOUNTER → 2023-09-15 | Outpatient (CLI) | payer MEDICARE ==
[2023-09-15 21:33] LABS: CALCIUM 8.9 mg/dL (8.4-10.2); CREATININE, serum 1.61 mg/dL (0.72-1.25); POTASSIUM 3.5 mmol/L (3.5-4.5)
== END ==
LOC: ZCOL.LAB 21:18
PROVIDERS: Internal Medicine Nephrology
DX: N18.30 Chronic kidney disease, stage 3 unspecified (principal)